=== PATIENT | female | born 1945 | race Caucasian/White ===

== ENCOUNTER → 2016-09-23 | Outpatient (CLI) | payer MEDICARE ==
[~2016-09-23] MED LIST: ASP81TEC PO; CALC-80 PO; ESTR1PAT28 TOP; HYDR-34 PO; LOVA10TA PO; LVT.15T PO; MAGN400T6 PO; MTF500T PO; MULT-608 PO; NAPR220C PO; NATTOKINASE PO; NIAC250T17 PO; OLME20TA21 PO; OSTEO BI FLEX PO; PANT40TA2 PO; SITA100T PO; TOPI50TA2 PO; UBID200C PO; VENL150C53 PO
--- NOTE | 2016-09-27 09:18 | Diagnostic Imaging Report ---
Bilateral screening mammogram The current study was also evaluated with a Computer Aided Detection (CAD) system. Indication: Screening. No current complaints stated on the questionnaire. COMPARISON: 09/01/15. FINDINGS: The breasts are composed of scattered fibroglandular densities. There are scattered benign-appearing calcifications seen. Allowing for technique and positional differences, no suspicious change is seen. IMPRESSION: No significant change. ACR BI-RADS Category 2: Benign findings. Result letter will be mailed to the patient. Note: At least 10% of breast cancer is not imaged by mammography. Dictated by: Dictated on workstation # [id number]
== END ==
LOC: RAD 10:06
PROVIDERS: ATTEND Obstetrics & Gynecology
DX: Z12.31 Encounter for screening mammogram for malignant neoplasm of breast (principal)
CPT/HCPCS: 77067

== ENCOUNTER → 2017-01-27 | Outpatient (CLI) | payer MEDICARE ==
--- NOTE | 2017-01-27 20:14 | Diagnostic Imaging Report ---
EXAMINATION: DEXA scan. INDICATION: Screening for osteoporosis. There are no prior studies available for comparison. The bone mineral density of the hips and spine was measured. FINDINGS: The T-score for the spine is 4.0. The T-score for the left hip is 0.2 and for the right hip 0.1. All of these values are within normal limits. IMPRESSION: The bone mineral density of the hips and spine is within normal limits. Dictated by: Dictated on workstation # [id number]
== END ==
LOC: RAD 08:25
PROVIDERS: ATTEND Internal Medicine
DX: R29.890 Loss of height (principal); Z78.0 Asymptomatic menopausal state
CPT/HCPCS: 77080

== ENCOUNTER → 2019-02-26 | Outpatient (CLI) | payer MEDICARE ==
[~2019-02-26] MED LIST changes: +ASPI-999 PO; +ATOR80TA76 PO; +CARV3.122 PO; +CLOP75TA28 PO; +SACU1TAB PO
== END ==
LOC: CARD 08:40
PROVIDERS: ATTEND Nurse Practitioner Family
DX: I34.0 Nonrheumatic mitral (valve) insufficiency (principal); I25.10 Atherosclerotic heart disease of native coronary artery without angina pectoris; I25.5 Ischemic cardiomyopathy; I10 Essential (primary) hypertension; E78.5 Hyperlipidemia, unspecified
CPT/HCPCS: 93306

== ENCOUNTER 2019-05-23 09:53 | Outpatient (RCR) | payer MEDICARE | END 2019-05-24 | disposition home or self-care (01) | LOC: CR 09:53 | PROVIDERS: ATTEND Internal Medicine Cardiovascular Disease | DX: Z48.812 Encounter for surgical aftercare following surgery on the circulatory system (principal); I25.2 Old myocardial infarction; Z95.5 Presence of coronary angioplasty implant and graft | CPT/HCPCS: 93798 ==

== ENCOUNTER 2019-06-01 10:26 | Outpatient (RCR) | payer MEDICARE ==
[~2019-06-01 10:26] MED LIST changes: -SACU1TAB PO; +SACU1TAB2 PO
== END 2019-08-23 | disposition home or self-care (01) ==
LOC: CR 10:26
PROVIDERS: ATTEND Internal Medicine Cardiovascular Disease
DX: Z48.812 Encounter for surgical aftercare following surgery on the circulatory system (principal); I25.2 Old myocardial infarction; Z95.5 Presence of coronary angioplasty implant and graft
CPT/HCPCS: 93798

== ENCOUNTER → 2019-07-30 | Outpatient (CLI) | payer MEDICARE | LOC: CARD 12:46 | PROVIDERS: ATTEND Nurse Practitioner Family | DX: I25.5 Ischemic cardiomyopathy (principal); I25.10 Atherosclerotic heart disease of native coronary artery without angina pectoris; I11.9 Hypertensive heart disease without heart failure; E78.2 Mixed hyperlipidemia; I51.89 Other ill-defined heart diseases; I34.0 Nonrheumatic mitral (valve) insufficiency | CPT/HCPCS: 93306 ==

== ENCOUNTER → 2019-12-25 | Outpatient (CLI) | payer MEDICARE ==
[~2019-12-25] VITALS: Ht 170 cm; Wt 83.0 kg
[~2019-12-25] MED LIST changes: +CATHETER FLUSH 10 ML SYR IV PRN; +REGADENOSON 0.4 MG/5 ML SYR (LEXISCAN) IV ONE
[2019-12-25 09:26] VITALS: BP 157/86
[2019-12-25 09:27] VITALS: BP 151/88
--- NOTE | 2019-12-25 16:11 | STRESS TEST ---
DATE OF SERVICE: 12/25/2019 RESTING AND POST REGADENOSON TECHNETIUM-99M TETROFOSMIN SPECT CT IMAGING ORDERING PHYSICIAN: Allison Penn APRN. PRIMARY PHYSICIAN: Dr. Butler. CLINICAL DIAGNOSIS: Coronary artery disease. Baseline images were carried out after injection of 10.27 mCi of technetium-99m Tetrofosmin. This was followed by 0.4 mg Regadenoson and 31.3 mCi of technetium-99m Tetrofosmin for stress imaging. The electrocardiogram showed sinus rhythm with evidence of anterior wall myocardial infarction. The electrocardiogram did not change significantly with Regadenoson infusion. The patient tolerated the procedure well. Review of images at rest and following stress indicates a predominantly fixed anteroapical perfusion defect. Gated images show anteroapical akinesis to dyskinesis. Left ventricular ejection fraction is calculated to be 37%. Left ventricular end diastolic volume is 131 mL. TID is absent (1.18). CONCLUSIONS: 1. Anteroapical myocardial infarction with a small amount of jeromy-infarct ischemia. 2. Anteroapical akinesis to dyskinesis. 3. Impairment of global left ventricular systolic function with an ejection fraction of 37%. 4. Cardiomegaly. Job ID: [id number] DocumentID: [id number] Dictated Date: 12/25/2019 15:48:05 Mechanics Supervisor Date: 12/25/2019 16:11:18 Dictated By: ERWIN TOLBERT MD, MA, FACP, FACC,
== END ==
LOC: CARD 08:22
PROVIDERS: ATTEND Nurse Practitioner Family
DX: I25.2 Old myocardial infarction (principal); I11.9 Hypertensive heart disease without heart failure; I25.5 Ischemic cardiomyopathy; I25.10 Atherosclerotic heart disease of native coronary artery without angina pectoris; I65.23 Occlusion and stenosis of bilateral carotid arteries; E78.5 Hyperlipidemia, unspecified
CPT/HCPCS: 78452; 93017; A9502

== ENCOUNTER 2020-01-29 06:35 | Day surgery (SDC) | payer MEDICARE ==
[2020-01-29] VITALS (11 sets, daily range): BP systolic 128–167; BP diastolic 62–78
[~2020-01-29] VITALS: Ht 168 cm; Wt 82.0 kg
[~2020-01-29 06:35] MED LIST changes: -CATHETER FLUSH 10 ML SYR IV PRN; -REGADENOSON 0.4 MG/5 ML SYR (LEXISCAN) IV ONE
[2020-01-29] MEDS ORDERED: HEParin (CATH LAB) 2,000 ML IV ONE (06:55)
[2020-01-29] MEDS ORDERED: NS IV 1000 ML 1,000 ML ONE (06:55)
[2020-01-29] MEDS ORDERED: LIDOCAINE 1% INJ 20 ML 20 ML VIAL ONE (06:56)
[2020-01-29] MEDS ORDERED: NS IV 1000 ML 1,000 ML IV SCH ×2 (07:00→10:53)
[2020-01-29 07:22] LABS: HEMOGLOBIN 12.9 G/DL (11.5-16.0); MEAN PLATELET VOLUME 10.3 FL (7.4-10.4); RED CELL DISTRIBUTION WIDTH 13.5 % (10.0-14.5)
[2020-01-29] MEDS ORDERED: AMIT10TA6 PO (07:23)
[2020-01-29] MEDS ORDERED: TOPI100T11 PO (07:23)
[2020-01-29] MEDS ORDERED: METF-399 PO (07:23)
[2020-01-29] MEDS ORDERED: ASPI-983 PO (07:23)
[2020-01-29] MEDS ORDERED: FAMO20TA3 PO (07:23)
[2020-01-29] MEDS ORDERED: CLOP75TA69 PO (07:23)
[2020-01-29] MEDS ORDERED: LEVO112T55 PO (07:23)
[2020-01-29] MEDS ORDERED: BUPR150T7 PO (07:23)
[2020-01-29] MEDS ORDERED: LOSA50TA63 PO (07:23)
[2020-01-29 07:33] LABS: INR 0.9 (0.8-1.4); PROTHROMBIN TIME PATIENT 12.3 SEC (12.2-14.7)
[2020-01-29 07:42] LABS: ALBUMIN 3.9 GM/DL (3.2-4.5); BILIRUBIN,TOTAL 0.2 MG/DL (0.1-1.0); CALCIUM 8.9 MG/DL (8.5-10.1); CREATININE SERUM 1.17 MG/DL (0.60-1.30); POTASSIUM 3.7 MMOL/L (3.6-5.0); TOTAL PROTEIN 6.6 GM/DL (6.4-8.2)
[2020-01-29] MEDS ORDERED: MIDAZOLAM 5 MG/5 ML (VERSED) VIAL ONE (08:30)
[2020-01-29] MEDS ORDERED: fentaNYL INJECTION 100 MCG/2 ML AMP ONE (08:31)
--- NOTE | 2020-01-29 10:52 | Cardiac Procedure Note-CS/ASA ---
Pre-Procedure Note Pre-Op Procedure Note H&P Reviewed The H&P was reviewed, patient examined and no changes noted. Date H&P Reviewed: Jan 29, 2020 Time H&P Reviewed: 08:50 Conscious Sedation Pre-Proced Time 08:50 ASA Score 3 For ASA 3 and 4: Consider anesthesia and medical clearance. Also, for patients with a history of failed moderate sedation consider anesthesia. Airway Lungs Heart ASA score ASA 1: a normal healthy patient ASA 2: a patient with a mild systemic disease (mid diabetes, controlled hypertension, obesity ASA 3: a patient with a severe systemic disease that limits activity (angina, COPD, prior Myocardial infarction) ASA 4: a patient with an incapacitating disease that is a constant threat to life (CHF, renal failure) ASA 5: a moribund patient not expected to survive 24 hrs. (ruptured aneurysm) ASA 6: a declared brain- patient whose organs are being harvested. For emergent operations, add the letter E after the classification Mallampati Classification Grade 2 Sedation Plan Analgesia, Amnesia, Plan communicated to team members, Discussed options with patient/fam, Discussed risks with patient/fam The patient is an appropriate candidate to undergo the planned procedure, sedation, and anesthesia. The patient immediately re-assessed prior to indication. ERWIN TOLBERT MD FACP FAC CCDS Jan 29, 2020 10:52
--- NOTE | 2020-01-29 10:56 | Discharge Inst-Cardiology ---
Discharge Inst-Cardiac Discharge Medications Continued Medications: Amitriptyline HCl (Amitriptyline HCl) 10 Mg Tablet 10 MG PO HS, TAB Aspirin (Aspirin EC) 81 Mg Tablet.dr 81 MG PO DAILY, TAB Bupropion HCl (Bupropion Xl) 150 Mg Tab.er.24h 150 MG PO BID for Smoking Cessation, TAB Calcium Carbonate/Vitamin D3 (Calcium 600 + D Caplet) 1 Each Tablet 1 EACH PO DAILY Carvedilol (Carvedilol) 3.125 Mg Tablet 3.125 MG PO BID, #60 TAB 5 Refills Clopidogrel Bisulfate (Plavix) 75 Mg Tablet 75 MG PO DAILY, TAB Famotidine (Acid Map Compiler (FAMOTIDINE)) 20 Mg Tablet 20 MG PO BID, TAB Levothyroxine Sodium (Levothyroxine Sodium) 112 Mcg Tablet 112 MCG PO DAILY, TAB Losartan Potassium (Losartan Potassium) 50 Mg Tablet 50 MG PO DAILY, TAB Magnesium Oxide (Magnesium Oxide) 400 Mg Tablet 400 MG PO DAILY Multivitamins (Multiple Vitamin) 1 Tab Tablet 1 TAB PO DAILY [Nattokinase] () 100 MG PO DAILY [Osteo Bi Flex] () 1 TAB PO BID Topiramate (Topiramate) 100 Mg Tablet 100 MG PO DAILY, TAB Ubidecarenone (Co Q-10) 200 Mg Capsule 200 MG PO DAILY Discontinued Medications: Metformin HCl (Metformin HCl) 1,000 Mg Tablet 500 MG PO BID, TAB Patient Instructions Patient Instructions: Hold METFROMIN until the evening of 01/31/20 and then resume previous home dose ERWIN TOLBERT MD FACP [facility] Jan 29, 2020 10:56
--- NOTE | 2020-01-29 10:57 | Discharge Inst-Post CATH ---
Discharge Inst-CATH/EP Post Cardiac Cath/EP D/C Inst Follow Up/Plan F/u with Dr Sahu in 3 weeks ACTIVITY * Go Home directly and rest. * Limit activity of the leg (or wrist if it was used) for 7 days including aerobics, swimming, jogging, bicycling, etc. * Restrict stair-climbing for 7 days if possible, if not, climb up with your n on-cath leg, then bring together on the same step. * Avoid lifting, pushing, pulling or excessive movement of the affected ex tremity for 7 days. * Customary sexual activity may be resumed after 2 days-use caution not to use a position that strains or causes pain to the affected extremity. * No driving for 24 hours. * NO SMOKING. * Avoid straining for bowel movements for 7 days. * Gentle walking on level ground is allowed. * Returning to work will depend on the type of procedure and the results. Your doctor will discuss this with you. CALL YOUR DOCTOR FOR ANY OF THE FOLLOWING: *If bleeding from the puncture site occurs- Apply gentle pressure to site with clean cloth and call your doctor or EMS. * If a knot or lump forms under the skin, increases in size, or causes pain. * If bruising appears to be worsening or moving further down your leg instead of disappearing. * Temperature above 101 F. CARE OF YOUR GROIN INCISION; * Bruising or purple discoloration of the skin near the puncture site is common. * You may shower only, no bathtub bathing for 5 days. Be careful to avoid slipping as your leg may feel stiff. * If a closure device was used on your femoral artery, please see the attached guide regarding care of the device and your leg. * Leave dressing on FOR 24 hours. CARE OF YOUR WRIST INCISION; * Bruising or purple discoloration of the skin near the puncture site is common. * You may shower. * DO NOT submerge wrist. * Leave dressing on FOR 24 hours. ERWIN SAHU MD FACP FAC CCDS Jan 29, 2020 10:57
[2020-01-29] MEDS ORDERED: PATIENT MAY USE OWN MEDS, ALL PO SCH (11:00)
--- NOTE | 2020-01-29 13:02 | CARDIAC CATHETERIZATION ---
DATE OF SERVICE: 01/29/2020 CARDIAC CATHETERIZATION REPORT The patient is a 74-year-old lady who is known to have coronary artery disease. She has previously had stenting of the left anterior descending and right coronary arteries. She has been experiencing chest discomfort, which is reminiscent of her previous angina, according to her. Given continuing symptoms, cardiac catheterization was carried out today after having obtained an informed consent. DESCRIPTION OF PROCEDURE: She was brought to the cardiac catheterization laboratory in a fasting state. Right groin was prepared and draped in the usual sterile fashion. Lidocaine 1% was used for local anesthesia. Modified Seldinger technique was used to advance a 5-Bolivian sheath in the right femoral artery. A 5-Bolivian JL4 catheter was used for left coronary angiography. A 5-Bolivian JR4 catheter was used for right coronary angiography. A 5-Bolivian pigtail catheter was used for left heart catheterization and left ventricular angiography. Angiography of the right femoral artery was carried out through the sheath. Mynx was used to achieve hemostasis. She tolerated the procedure well. HEMODYNAMICS: Left ventricular end-diastolic pressure following coronary angiography was 11 mmHg. There was no significant pressure gradient on pullback across the aortic valve. Ascending aortic pressure was 109/46 with a mean of 67 mmHg. CORONARY ANGIOGRAPHY: Left main coronary artery does not exhibit obstructive disease. There is coronary calcification involving all coronary vessels, especially of the left anterior descending. The left anterior descending artery has a widely patent stent in its proximal portion that is known to be Alpine Xience 2.25 x 12 that has been postdilated to 2.75 mm. The rest of the left anterior descending artery has diffuse moderate disease. The left circumflex artery has mild disease in its distal portion. The right coronary artery has a widely patent stent in its proximal portion that is known to be Alpine Xience 3.0 x 23 mm and a widely patent distal stent that is known to be Alpine Xience 2.75 x 8 mm. Distal to the distal stent, there is step down in a lesion in the distal right coronary artery that is approximately 50%. The right coronary artery is dominant. LEFT VENTRICULAR ANGIOGRAPHY: Left ventricular angiography was carried out in the right anterior oblique projection. The left ventricle shows anteroapical dyskinesis. Left ventricular ejection fraction is approximately 35%. CONCLUSIONS: 1. Coronary artery disease as described above. There are widely patent stents in the proximal left anterior descending (Alpine Xience 2.25 x 12 mm, post-dilated to 2.75 mm, placed in 01/2019) and in the proximal right coronary (Alpine Xience 3.0 x 23 mm, placed in 01/2019) and in the distal right coronary (Alpine Xience 2.75 x 8 mm, placed in 01/2018). The mid and distal left anterior descending artery have diffuse moderate disease. The distal right coronary artery has approximately 50% stenosis. 2. Ischemic cardiomyopathy with anteroapical dyskinesis and left ventricular ejection fraction approximately 35%. 3. Normal left ventricular end-diastolic pressure. DISCUSSION AND RECOMMENDATIONS: Based on the results of the study, it does not appear that further coronary intervention is needed. Medical management is being continued. Outpatient followup is advised. Job ID: [id number] DocumentID: [id number] Dictated Date: 01/29/2020 09:29:22 Clinical Nurse Leader Date: 01/29/2020 13:01:16 Dictated By: ERWIN TOLBERT MD, MA, FACP, FACC, MTDD
== END 2020-01-29 13:08 | disposition home or self-care (01) ==
LOC: CATH 06:35 → SDC 09:42 → CATH 13:08
PROVIDERS: ATTEND Internal Medicine Cardiovascular Disease
DX: I25.10 Atherosclerotic heart disease of native coronary artery without angina pectoris (principal); I42.9 Cardiomyopathy, unspecified; Z88.2 Allergy status to sulfonamides; Z88.8 Allergy status to other drugs, medicaments and biological substances; I10 Essential (primary) hypertension; R73.03 Prediabetes; E78.5 Hyperlipidemia, unspecified; I65.29 Occlusion and stenosis of unspecified carotid artery; I25.2 Old myocardial infarction; Z79.890 Hormone replacement therapy; Z79.84 Long term (current) use of oral hypoglycemic drugs; Z79.899 Other long term (current) drug therapy; Z87.891 Personal history of nicotine dependence
CPT/HCPCS: 80053; 80061; 85027; 85610; 85730; 87081; 93458; C1760; C1894; 36415

== ENCOUNTER → 2020-02-29 | Outpatient (CLI) | payer MEDICARE ==
[~2020-02-29] MED LIST changes: +AMIT10TA6 PO; +ASPI-1238 PO; +BUPR150T7 PO; +CLOP75TA69 PO; +FAMO20TA3 PO; +LEVO112T55 PO; +LOSA50TA63 PO; +METF-399 PO; +TOPI100T11 PO
--- NOTE | 2020-03-03 18:58 | Diagnostic Imaging Report ---
EXAM: Digital mammogram, bilateral screening. Comparisons: 09/26/2017, 09/23/2016 and 09/01/2015 3d digital tomography Bilateral History: Routine screening There are no current complaints. Technique: Bilateral 3D digital tomographic views were obtained with [employer] and reviewed on a [employer] workstation. In addition, CAD - computer aided detection was utilized. Findings: Breast Tissue Density C : The breast tissue is heterogeneously dense. Scattered fibroglandular elements may obscure underlying pathology. There are no suspicious masses, microcalcifications or areas of architectural distortion. Impression: No suspicious findings. BI-RADS Category 1: Negative. Normal interval followup. The patient will receive a letter with the results in the mail. Your mammogram demonstrates that you have dense breast tissue, which could hide abnormalities, and if you have other risk factors for breast cancer that have been identified, you might benefit from supplemental screening tests that may be suggested by your ordering physician. Dense breast tissue, in and of itself, is a relatively common condition. This information is not provided to cause undue concern, but rather to raise your awareness and to promote discussion with your physician regarding the presence of other risk factors, in addition to dense breast tissue. A report of your mammography results will be sent to you and your physician. You should contact your physician if you have any questions or concerns regarding this report. A mammogram does not have 100% sensitivity and therefore a negative imaging study should not delay further work up of a suspicious abnormality. Patient information is entered into the [facility] reminder system using [employer] with a target due date for the next screening mammogram. The patient will receive a reminder. "Our facility is accredited by the [employer] Mammography Program." . ACR category 1. ACR BI-RADS Category 1: Negative. Result letter will be mailed to the patient. Note: At least 10% of breast cancer is not imaged by mammography. Dictated on workstation # [id number]
== END ==
LOC: RAD 14:45
PROVIDERS: ATTEND Internal Medicine
DX: Z12.31 Encounter for screening mammogram for malignant neoplasm of breast (principal)
CPT/HCPCS: 77063; 77067

== ENCOUNTER → 2020-05-12 | Outpatient (CLI) | payer MEDICARE | LOC: CARD 13:46 | PROVIDERS: ATTEND Internal Medicine Cardiovascular Disease | DX: I25.5 Ischemic cardiomyopathy (principal); I51.7 Cardiomegaly | CPT/HCPCS: 93306 ==

== ENCOUNTER → 2021-03-02 | Outpatient (CLI) | payer MEDICARE ==
[~2021-03-02] MED LIST changes: -AMIT10TA6 PO; +AMT10T PO; +BUPR150T24 PO; -BUPR150T7 PO
--- NOTE | 2021-03-02 16:52 | Diagnostic Imaging Report ---
INDICATION: Routine screening. COMPARISON: 02/29/2020 and 09/26/2017. TECHNIQUE: 2D and 3D bilateral screening mammography was performed with CAD. FINDINGS: Scattered fibroglandular densities are identified bilaterally. Nodular densities in the outer right breast appear stable. No spiculated mass or malignant-appearing microcalcifications are seen. The axillae are unremarkable. IMPRESSION: No mammographic features suspicious for malignancy are identified. ACR BI-RADS Category 2: Benign findings. Result letter will be mailed to the patient. Note: At least 10% of breast cancer is not imaged by mammography. Dictated by: Dictated on workstation # [id number]
== END ==
LOC: RAD 15:00
PROVIDERS: ATTEND Obstetrics & Gynecology
DX: Z12.31 Encounter for screening mammogram for malignant neoplasm of breast (principal)
CPT/HCPCS: 77063; 77067

== ENCOUNTER 2021-06-03 17:31 | Emergency (ER) | payer MEDICARE ==
[~2021-06-03] VITALS: Ht 167 cm; Wt 81.0 kg
--- NOTE | 2021-06-03 17:50 | ED Lower Extremity ---
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 Allergies and Home Medications Allergies Coded Allergies: Sulfa (Sulfonamide Antibiotics) (Verified Allergy, Unknown, 01/29/20) lisinopril (Verified Allergy, Unknown, 01/29/20) Patient Home Medication List Amitriptyline HCl (Amitriptyline HCl) 10 Mg Tablet, 10 MG PO HS, (Reported) Entered as Reported by: SUSANA DAVISON on 01/29/20722 Aspirin (Aspirin EC) 81 Mg Tablet.dr, 81 MG PO DAILY, (Reported) Entered as Reported by: SUSANA DAVISON on 01/29/20722 Bupropion HCl (Bupropion Xl) 150 Mg Tab.er.24h, 150 MG PO BID, (Reported) Entered as Reported by: SUSANA DAVISON on 01/29/20722 Calcium Carbonate/Vitamin D3 (Calcium 600 + D Caplet) 1 Each Tablet, 1 EACH PO DAILY, (Reported) Entered as Reported by: JUAN SMALLS on 06/03/11922 Carvedilol (Carvedilol) 3.125 Mg Tablet, 3.125 MG PO BID Prescribed by: TITI MADDEN on 01/31/19826 Clopidogrel Bisulfate (Plavix) 75 Mg Tablet, 75 MG PO DAILY, (Reported) Entered as Reported by: SUSANA DAVISON on 01/29/20722 Famotidine (Acid Ict Help Desk Technician (FAMOTIDINE)) 20 Mg Tablet, 20 MG PO BID, (Reported) Entered as Reported by: SUSANA DAVISON on 01/29/20722 Levothyroxine Sodium (Levothyroxine Sodium) 112 Mcg Tablet, 112 MCG PO DAILY, (Reported) Entered as Reported by: SUSANA DAVISON on 01/29/20722 Losartan Potassium (Losartan Potassium) 50 Mg Tablet, 50 MG PO DAILY, (Reported) Entered as Reported by: SUSANA DAVISON on 01/29/20722 Magnesium Oxide (Magnesium Oxide) 400 Mg Tablet, 400 MG PO DAILY, (Reported) Entered as Reported by: JUAN SMALLS on 06/03/11 09 Multivitamins (Multiple Vitamin) 1 Tab Tablet, 1 TAB PO DAILY, (Reported) Entered as Reported by: JUAN SMALLS on 06/03/11922 Topiramate (Topiramate) 100 Mg Tablet, 100 MG PO DAILY, (Reported) Entered as Reported by: SUSANA DAVISON on 01/29/20722 Ubidecarenone (Co Q-10) 200 Mg Capsule, 200 MG PO DAILY, (Reported) Entered as Reported by: JUAN SMALLS on 06/03/11922 [Nattokinase] , 100 MG PO DAILY, (Reported) Entered as Reported by: JUAN SMALLS on 06/03/11922 [Osteo Bi Flex] , 1 TAB PO BID, (Reported) Entered as Reported by: JUAN SMALLS on 06/03/11922 Past Vvqyndt-Sjkgdh-Afcbiv Hx Patient Social History Tobacco Use?: No Substance use?: No Alcohol Use?: Yes Alcohol Frequency: Once in a while Pt feels they are or have been: No Immunizations Up To Date Tetanus Booster (TDap): Less than 5yrs First/Initial COVID19 Vaccinat: yes Second COVID19 Vaccination Nino: yes COVID19 Vaccine Traffic Sergeant: cyndi Past Medical History Surgery/Hospitalization HX: sx: cardiac stents, gallbladder, tonsils, tubal Surgeries: Yes Cardiac, Gallbladder, Tonsillectomy, Tubal Ligation Respiratory: No Cardiac: Yes Hypertension Neurological: No Reproductive Disorders: No Sexually Transmitted Disease: No Gastrointestinal: No Musculoskeletal: Yes (ARTHRITIS/INJECTIONS IN HER RIGHT KNEE AND NECK ) Endocrine: Yes Hypothyroidsim, Diabetes, Non-Insulin dep Blood Disorders: No Physical Exam Vital Signs Vital Signs - First Documented 06/03/21 17:38 Pulse 65 Resp 18 B/P (MAP) 183/84 (117) Pulse Ox 96 Capillary Refill : Less Than 3 Seconds Height, Weight, BMI Height: 5'6.00" Weight: 179lbs. 1.6oz. 81.544584xo; 29.00 BMI Method:Stated Progress/Results/Core Measures Results/Orders Vital Signs/I&O 06/03/21 17:38 Pulse 65 Resp 18 B/P (MAP) 183/84 (117) Pulse Ox 96 Blood Pressure Mean: 117 Departure Departure-Patient Inst. Referrals: ERINN GANT DO (PCP/Family) Primary Care Physician [place] PATEL STUDENT Jun 03, 2021 17:50
--- NOTE | 2021-06-03 17:56 | ED Lower Extremity ---
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 Source: patient History of Present Illness Date Seen by Provider: Jun 03, 2021 Time Seen by Provider: 17:47 Initial Comments PT ARRIVES VIA POV FROM HOME STATES 30 MINUTES AGO, SHE WAS WALKING UP STEPS ONTO WO[place]EN PORCH AND FELL FORWARD, HITTING HER LEFT [place] ON THE WOODEN PORCH OR PORCH STEP HAS A LARGE LACERATION TO LEFT LOWER LEG NO OTHER INJURIES FROM THE INCIDENT--DID NOT HIT HEAD NO PARESTHESIAS OR MOTOR DEFICITS, PT IS ABLE TO BEAR WEIGHT ON LEG PT IS ON ASPIRIN AND PLAVIX WITH HX OF CAD WITH STENTS X 3 PT IS DIABETIC. LAST TETANUS VACCINE IS UNKNOWN PCP: DR. 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 TOLBERT Allergies and Home Medications Allergies Coded Allergies: Sulfa (Sulfonamide Antibiotics) (Verified Allergy, Unknown, 01/29/20) lisinopril (Verified Allergy, Unknown, 01/29/20) Patient Home Medication List Home Medication List Reviewed: Yes Amitriptyline HCl (Amitriptyline HCl) 10 Mg Tablet, 10 MG PO HS, (Reported) Entered as Reported by: SUSANA DAVISON on 01/29/20 07 Aspirin (Aspirin EC) 81 Mg Tablet.dr, 81 MG PO DAILY, (Reported) Entered as Reported by: SUSANA DAVISON on 01/29/20722 Bupropion HCl (Bupropion Xl) 150 Mg Tab.er.24h, 150 MG PO BID, (Reported) Entered as Reported by: SUSANA DAVISON on 01/29/20 07 Calcium Carbonate/Vitamin D3 (Calcium 600 + D Caplet) 1 Each Tablet, 1 EACH PO DAILY, (Reported) Entered as Reported by: JUAN SMALLS on 06/03/11 0923 Carvedilol (Carvedilol) 3.125 Mg Tablet, 3.125 MG PO BID Prescribed by: TITI MADDEN on 01/31/19 0827 Cephalexin (Cephalexin) 500 Mg Tablet, 500 MG PO QID Prescribed by: BARBIE TOLENTINO on 06/03/211950 Clopidogrel Bisulfate (Plavix) 75 Mg Tablet, 75 MG PO DAILY, (Reported) Entered as Reported by: SUSANA DAVISON on 01/29/20722 Famotidine (Acid Market Research Coordinator (FAMOTIDINE)) 20 Mg Tablet, 20 MG PO BID, (Reported) Entered as Reported by: SUSANA DAVISON on 01/29/20722 Levothyroxine Sodium (Levothyroxine Sodium) 112 Mcg Tablet, 112 MCG PO DAILY, (Reported) Entered as Reported by: SUSANA DAVISON on 01/29/20722 Losartan Potassium (Losartan Potassium) 50 Mg Tablet, 50 MG PO DAILY, (Reported) Entered as Reported by: SUSANA DAVISON on 01/29/20722 Magnesium Oxide (Magnesium Oxide) 400 Mg Tablet, 400 MG PO DAILY, (Reported) Entered as Reported by: JUAN SMALLS on 06/03/11922 Multivitamins (Multiple Vitamin) 1 Tab Tablet, 1 TAB PO DAILY, (Reported) Entered as Reported by: JUAN SMALLS on 06/03/11922 Topiramate (Topiramate) 100 Mg Tablet, 100 MG PO DAILY, (Reported) Entered as Reported by: SUSANA DAVISON on 01/29/20722 Tramadol HCl (Ultram) 50 Mg Tablet, 50 MG PO Q4H Prescribed by: BARBIE TOLENTINO on 06/03/211951 Ubidecarenone (Co Q-10) 200 Mg Capsule, 200 MG PO DAILY, (Reported) Entered as Reported by: JUAN SMALLS on 06/03/11922 [Nattokinase] , 100 MG PO DAILY, (Reported) Entered as Reported by: JUAN SMALLS on 06/03/11922 [Osteo Bi Flex] , 1 TAB PO BID, (Reported) Entered as Reported by: JUAN SMALLS on 06/03/11922 Review of Systems Constitutional: no symptoms reported Musculoskeletal: see HPI Skin: see HPI Psychiatric/Neurological: No Symptoms Reported Past Zwkapcf-Mjtsul-Labghk Hx Patient Social History Tobacco Use?: No Substance use?: No Alcohol Use?: Yes Alcohol Frequency: Once in a while Pt feels they are or have been: No Immunizations Up To Date Tetanus Booster (TDap): Less than 5yrs First/Initial COVID19 Vaccinat: yes Second COVID19 Vaccination Nino: yes 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[employer] Products: cyndi Past Medical History Surgery/Hospitalization HX: sx: cardiac stents, gallbladder, tonsils, tubal Surgeries: Yes Cardiac, Gallbladder, Tonsillectomy, Tubal Ligation Respiratory: No Cardiac: Yes Coronary Artery Disease, High Cholesterol, Hypertension Neurological: No Reproductive Disorders: No 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 1.6oz. 81.844179mt; 29.00 BMI Method:Stated General Appearance: WD/WN, no apparent distress Neck: non-tender Back: normal inspection Hips: bilateral hip normal inspection Legs: right leg normal inspection; left leg other (LARGE V-SHAPED FLAP LACERATION TO ANTERIOR ASPECT OF LEFT LOWER LEG. ) Procedures/Interventions Other Wound Location LEFT LOWER LEG/ANTERIOR ASPECT Wound Length (cm): 25 Wound's Depth, Shape: into muscle, irregular, flap, bone, sub Q Wound Explored: clean Anesthesia: Lidocaine w/ Epi (2%) Volume Anesthetic (ccs): 2000 Wound Debrided: extensive Progress USING STERILE TECHNIQUE, WOUND WAS INJECTED WITH 2% LIDOCAINE + EPI IRRIGATED WITH 2000 ML OF STERILE SALINE + BETASEPT WOUND EXPLORED, AND WAS NOTED THAT WOUND EXTENDED COMPLETELY THRU FASCIA, MUSCLE AND LARGE AMOUNT OF TIBIA BONE IS EXPOSED--AT LEAST 10 CM OF BONE IS EXPOSED. AT THAT POINT, WOUND WAS COVERED WITH STERILE GAUZE AND SURGEON WAS CONTACTED. Progress/Results/Core Measures Results/Orders Lab Results Laboratory Tests Test 06/03/21 19:03 Range/Units White Blood Count 9.6 4.3-11.0 10^3/uL Red Blood Count 4.04 3.80-5.11 10^6/uL Hemoglobin 12.4 11.5-16.0 g/dL Hematocrit 41 35-52 % Mean Corpuscular Volume 102 H 80-99 fL Mean Corpuscular Hemoglobin 31 25-34 pg Mean Corpuscular Hemoglobin Concent 30 L 32-36 g/dL Red Cell Distribution Width 12.8 10.0-14.5 % Platelet Count 183 130-400 10^3/uL Mean Platelet Volume 10.4 9.0-12.2 fL Immature Granulocyte % (Auto) 0 % Neutrophils (%) (Auto) 67 42-75 % Lymphocytes (%) (Auto) 21 12-44 % Monocytes (%) (Auto) 7 0-12 % Eosinophils (%) (Auto) 5 0-10 % Basophils (%) (Auto) 1 0-10 % Neutrophils # (Auto) 6.4 1.8-7.8 10^3/uL Lymphocytes # (Auto) 2.0 1.0-4.0 10^3/uL Monocytes # (Auto) 0.7 0.0-1.0 10^3/uL Eosinophils # (Auto) 0.4 H 0.0-0.3 10^3/uL Basophils # (Auto) 0.1 0.0-0.1 10^3/uL Immature Granulocyte # (Auto) 0.0 0.0-0.1 10^3/uL Prothrombin Time 13.9 12.2-14.7 SEC INR Comment 1.0 0.8-1.4 Activated Partial Thromboplast Time 28 24-35 SEC Sodium Level 140 135-145 MMOL/L Potassium Level 3.8 3.6-5.0 MMOL/L Chloride Level 111 H 98-107 MMOL/L Carbon Dioxide Level 22 21-32 MMOL/L Anion Gap 7 5-14 MMOL/L Blood Urea Nitrogen 17 7-18 MG/DL Creatinine 1.03 0.60-1.30 MG/DL Estimat Glomerular Filtration Rate 52 BUN/Creatinine Ratio 17 Glucose Level 99 70-105 MG/DL Calcium Level 8.5 8.5-10.1 MG/DL My Orders Orders - RAJAN,BARBIE K DO Tibia/Fibula, Left, 2 Views (06/03/21 17:51) Dipht,Pertuss(Acell),Tet Adult (Boostrix (06/03/21 18:00) Lidocaine/Epi 2% 1:100,000 (Xylocaine/Ep (06/03/21 18:00) Lidocaine/Epi 2% 1:100,000 (Xylocaine/Ep (06/03/21 18:26) Ed Iv/Invasive Line Start (06/03/21 18:45) Basic Metabolic Panel (06/03/21 18:45) Cbc With Automated Diff (06/03/21 18:45) Protime With Inr (06/03/21 18:45) Partial Thromboplastin Time (06/03/21 18:45) Cefazolin 2 Gm Iv Premixed (Ancef 2 Gm P (06/03/21 18:45) Cefazolin Injection (Ancef Injection) (06/03/21 19:35) Rx-Tramadol Hcl (Rx-Ultram) (06/03/21 19:52) Rx-Cephalexin Capsule (Rx-Keflex Capsule (06/03/21 19:52) Medications Given in ED Current Medications Medications Dose Ordered Sig/Michele Route Start Time Stop Time Status Last Admin Dose Admin Diphtheria/ Tetanus/Acell Pertussis 0.5 ml ONCE ONCE IM 06/03/21 18:00 06/03/21 18:01 DC 06/03/21 18:23 0.5 ML Lidocaine/ Epinephrine 20 ml ONCE ONCE INJ 06/03/21 18:00 06/03/21 18:01 DC 06/03/21 19:00 20 ML Vital Signs/I&O 06/03/21 06/03/21 17:38 20:26 Pulse 65 60 Resp 18 20 B/P (MAP) 183/84 (117) 178/71 Pulse Ox 96 97 Blood Pressure Mean: 117 Diagnostic Imaging Comments XRAYS LEFT TIB-FIB--PER RADIOLOGIST REPORT AT 1855 FINDINGS: No fracture or malalignment. Moderate degenerative changes in the left knee. No suspicious osteoblastic or lytic lesions. Plantar and Achilles calcaneal heel spurs. No radiopaque foreign bodies. IMPRESSION: No acute radiographic findings in the left tibia or fibula. Reviewed: Reviewed by Me Departure Communication (Admissions) 1843--SPOKE WITH DR. TROTTER, SURGEON. HE WILL BE IN TO SEE PT 1854--DR. TROTTER HERE, CARE TURNED OVER TO HIM Impression Primary Impression: COMPLEX LACERATION OF LEFT LOWER LEG Additional Impressions: Ypwjkfgtiy-furwazoyk-otcuxlk (DPT) vaccination administered at current visit NIDDM ASVD (arteriosclerotic vascular disease) Disposition: HOME, SELF-CARE Condition: Stable Departure-Patient Inst. Decision time for Depature: 19:45 Referrals: JULI TROTTER WILLIAM J DO (PCP/Family) Primary Care Physician Patient Instructions: Laceration Repair With Stitches (DC), Diphtheria and Tetanus Toxoids, and Acellular Pertussis Vaccine Add. Discharge Instructions: LEAVE DRESSING IN PLACE FOR 24 HOURS, THEN CLEAN TWICE A DAY WITH ANTIBACTERIAL SOAP AND WATER ON A Q-TIP, AND APPLY FRESH DRESSING OTHERWISE KEEP CLEAN AND DRY ICE TO AREA AT 20 MINUTE INTERVALS ACTIVITIES TOLERATED, ELEVATE LEG MUCH POSSIBLE WHEN RESTING TYLENOL NEEDED FOR PAIN FOLLOW UP WITH DR. TROTTER IN 1 WEEK FOR FURTHER CARE--CALL IN THE MORNING TO SCHEDULE APPOINTMENT All discharge instructions reviewed with patient and/or family. Voiced understanding. Scripts Tramadol HCl (Ultram) 50 Mg Tablet 50 MG PO Q4H for Pain, #20 TAB Prov: BARBIE TOLENTINO DO 06/03/21 Cephalexin (Cephalexin) 500 Mg Tablet 500 MG PO QID, #28 TAB 0 Refills Prov: BARBIE TOLENTINO DO 06/03/21 BARBIE TOLENTINO DO Jun 03, 2021 17:56
[2021-06-03] MEDS ORDERED: LIDOCAINE/EPI 2% 1:100,00 (XYLOCAINE) 20 ML VIAL INJ ONE (18:00)
[2021-06-03] MEDS ORDERED: TETANUS,DIPTH,PERTUSS P/F (BOOSTRIX) 0.5 ML VIAL IM ONE (18:00)
--- NOTE | 2021-06-03 18:23 | Diagnostic Imaging Report ---
EXAM: Tibia/fibula, left, 2 views. INDICATION: Left leg pain. COMPARISON: None. FINDINGS: No fracture or malalignment. Moderate degenerative changes in the left knee. No suspicious osteoblastic or lytic lesions. Plantar and Achilles calcaneal heel spurs. No radiopaque foreign bodies. IMPRESSION: No acute radiographic findings in the left tibia or fibula. Dictated by: Dictated on workstation # [id number]
[2021-06-03] MEDS ORDERED: LIDOCAINE/EPI 2% 1:100,00 (XYLOCAINE) 20 ML VIAL ONE (18:26)
[2021-06-03] MEDS ORDERED: ceFAZolin 2 GM IV Premixed 50 ML IV STA (18:45)
[2021-06-03 19:16] LABS: BASOPHILS # (AUTO) 0.1 10^3/uL (0.0-0.1); BASOPHILS % (AUTO) 1 % (0-10); EOSINOPHILS # (AUTO) 0.4 10^3/uL (0.0-0.3); EOSINOPHILS % (AUTO) 5 % (0-10); HEMATOCRIT 41 % (35-52); HEMOGLOBIN 12.4 g/dL (11.5-16.0); LYMPHOCYTES % (AUTO) 21 % (12-44); MEAN CORPUSCULAR HEMOGLOBIN 31 pg (25-34); MEAN CORPUSCULAR HGB CONC 30 g/dL (32-36); MEAN CORPUSCULAR VOLUME 102 fL (80-99); MEAN PLATELET VOLUME 10.4 fL (9.0-12.2); MONOCYTES # (AUTO) 0.7 10^3/uL (0.0-1.0); MONOCYTES % (AUTO) 7 % (0-12); NEUTROPHILS # (AUTO) 6.4 10^3/uL (1.8-7.8); NEUTROPHILS % (AUTO) 67 % (42-75); PLATELET COUNT 183 10^3/uL (130-400); WHITE BLOOD COUNT 9.6 10^3/uL (4.3-11.0)
[2021-06-03 19:25] LABS: POTASSIUM 3.8 MMOL/L (3.6-5.0)
[2021-06-03 19:26] LABS: CALCIUM 8.5 MG/DL (8.5-10.1)
[2021-06-03 19:27] LABS: PROTHROMBIN TIME PATIENT 13.9 SEC (12.2-14.7)
[2021-06-03 19:30] LABS: CREATININE SERUM 1.03 MG/DL (0.60-1.30)
[2021-06-03] MEDS ORDERED: ceFAZolin INJECTION 1,000 MG in NS (IVPB) 50 ML IV STA (19:35)
[2021-06-03] MEDS ORDERED: TRAM-42 PO (19:51)
[2021-06-03] MEDS ORDERED: CEPH500T PO (19:51)
[2021-06-03] MEDS ORDERED: RX-CEPHALEXIN (KEFLEX) 250 MG CAP PPK#4 PO STA (19:52)
--- NOTE | 2021-06-03 20:21 | Consultation - Surgery ---
History of Present Illness History of Present Illness Patient Consulted On(tahira/time) 06/03/21 20:08 Time Seen by Provider: 19:11 History of Present Illness Surgery asked to assess Laceration on left lower leg. HPI: pt was at home, tripped walking up porch and landed on her leg. States she doesn't even know how she could have done this; didn't really remember hitting her leg. When I saw her she said was not having pain, ED physician had already injected lidocaine. She states it was bleeding pretty bad at home, but has slowed down. Allergies and Home Medications Allergies Coded Allergies: Sulfa (Sulfonamide Antibiotics) (Verified Allergy, Unknown, 01/29/20) lisinopril (Verified Allergy, Unknown, 01/29/20) Patient Home Medication List Home Medication List Reviewed: Yes Amitriptyline HCl (Amitriptyline HCl) 10 Mg Tablet, 10 MG PO HS, (Reported) Entered as Reported by: SUSANA DAVISON on 01/29/20722 Aspirin (Aspirin EC) 81 Mg Tablet.dr, 81 MG PO DAILY, (Reported) Entered as Reported by: SUSANA DAVISON on 01/29/20722 Bupropion HCl (Bupropion Xl) 150 Mg Tab.er.24h, 150 MG PO BID, (Reported) Entered as Reported by: SUSANA DAVISON on 01/29/20722 Calcium Carbonate/Vitamin D3 (Calcium 600 + D Caplet) 1 Each Tablet, 1 EACH PO DAILY, (Reported) Entered as Reported by: JUAN SMALLS on 06/03/11922 Carvedilol (Carvedilol) 3.125 Mg Tablet, 3.125 MG PO BID Prescribed by: TITI MADDEN on 01/31/19826 Cephalexin (Cephalexin) 500 Mg Tablet, 500 MG PO QID Prescribed by: BARBIE TOLENTINO on 06/03/211950 Clopidogrel Bisulfate (Plavix) 75 Mg Tablet, 75 MG PO DAILY, (Reported) Entered as Reported by: SUSANA DAVISON on 01/29/20722 Famotidine (Acid Drafter Engineering (FAMOTIDINE)) 20 Mg Tablet, 20 MG PO BID, (Reported) Entered as Reported by: SUSANA DAVISON on 01/29/20722 Levothyroxine Sodium (Levothyroxine Sodium) 112 Mcg Tablet, 112 MCG PO DAILY, (Reported) Entered as Reported by: SUSANA DAVISON on 01/29/20722 Losartan Potassium (Losartan Potassium) 50 Mg Tablet, 50 MG PO DAILY, (Reported) Entered as Reported by: SUSANA DAVISON on 01/29/20722 Magnesium Oxide (Magnesium Oxide) 400 Mg Tablet, 400 MG PO DAILY, (Reported) Entered as Reported by: JUAN SMALLS on 06/03/11922 Multivitamins (Multiple Vitamin) 1 Tab Tablet, 1 TAB PO DAILY, (Reported) Entered as Reported by: JUAN SMALLS on 06/03/11922 Topiramate (Topiramate) 100 Mg Tablet, 100 MG PO DAILY, (Reported) Entered as Reported by: SUSANA DAVISON on 01/29/20722 Tramadol HCl (Ultram) 50 Mg Tablet, 50 MG PO Q4H Prescribed by: BARBIE TOLENTINO on 06/03/211951 Ubidecarenone (Co Q-10) 200 Mg Capsule, 200 MG PO DAILY, (Reported) Entered as Reported by: JUAN SMALLS on 06/03/11922 [Nattokinase] , 100 MG PO DAILY, (Reported) Entered as Reported by: JUAN SMALLS on 06/03/11922 [Osteo Bi Flex] , 1 TAB PO BID, (Reported) Entered as Reported by: JUAN SMALLS on 06/03/11922 Past Bltwkrh-Ibpxmf-Xvicdu Hx Patient Social History Smoking Status: Never a Smoker Alcohol Use?: Yes Have you traveled recently?: No Immunizations Up To Date Tetanus Booster (TDap): Less than 5yrs Date of Pneumonia Vaccine: Mar 06, 2019 Date of Influenza Vaccine: Mar 06, 2019 Surgeries History of Surgeries: Yes Surgeries: Cardiac, Gallbladder, Tonsillectomy, Tubal Ligation Respiratory History of Respiratory Disorde: No Cardiovascular History of Cardiac Disorders: Yes Cardiac Disorders: Coronary Artery Disease, High Cholesterol, Hypertension Neurological History of Neurological Disord: No Reproductive System Hx Reproductive Disorders: No Sexually Transmitted Disease: No 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 Genitourinary History of Genitourinary Disor: No Gastrointestinal History of Gastrointestinal Di: Yes (S/P CHOLECYSTECTOMY) Gastrointestinal Disorders: Gall Bladder Disease Musculoskeletal History of Musculoskeletal Dis: Yes (ARTHRITIS/INJECTIONS IN HER RIGHT KNEE AND NECK ) Endocrine History of Endocrine Disorders: Yes Endocrine Disorders: Hypothyroidsim, Diabetes, Non-Insulin dep HEENT History of HEENT Disorders: Yes (S/P TONSILLECTOMY) HEENT Disorders: Tonsilitis Cancer History of Cancer: No Psychosocial History of Psychiatric Problem: No Integumentary History of Skin or Integumenta: No Blood Transfusions History of Blood Disorders: No Family Medical History Significant Family History: No Pertinent Family Hx Review of Systems-General Constitutional: No malaise, No weakness EENTM: No hearing loss Respiratory: No cough, No dyspnea on exertion Cardiovascular: No chest pain, No edema; Hx of Intervention Gastrointestinal: No abdominal pain, No nausea, No vomiting Genitourinary: No dysuria, No frequency, No hematuria Physical Exam-General Problems Physical Exam Vital Signs Vital Signs - First Documented 06/03/21 17:38 Pulse 65 Resp 18 B/P (MAP) 183/84 (117) Pulse Ox 96 Capillary Refill : Less Than 3 Seconds General Appearance: WD/WN, no apparent distress Eyes: Bilateral Eye PERRL, Bilateral Eye EOMI HEENT: pharynx normal Respiratory: lungs clear, normal breath sounds, no respiratory distress, no accessory muscle use Cardiovascular: regular rate, rhythm, no murmur Gastrointestinal: non tender, soft Extremities: other (left leg mid-reynolds, appx 10 inches in length; v-shaped. through skin and subQ fat, ms fiber visible) Data Review Labs Laboratory Tests 06/03/21 19:03: White Blood Count 9.6, Red Blood Count 4.04, Hemoglobin 12.4, Hematocrit 41, Mean Corpuscular Volume 102H, Mean Corpuscular Hemoglobin 31, Mean Corpuscular Hemoglobin Concent 30L, Red Cell Distribution Width 12.8, Platelet Count 183, Mean Platelet Volume 10.4, Immature Granulocyte % (Auto) 0, Neutrophils (%) (Auto) 67, Lymphocytes (%) (Auto) 21, Monocytes (%) (Auto) 7, Eosinophils (%) (Auto) 5, Basophils (%) (Auto) 1, Neutrophils # (Auto) 6.4, Lymphocytes # (Auto) 2.0, Monocytes # (Auto) 0.7, Eosinophils # (Auto) 0.4H, Basophils # (Auto) 0.1, Immature Granulocyte # (Auto) 0.0, Prothrombin Time 13.9, INR Comment 1.0, Activated Partial Thromboplast Time 28, Sodium Level 140, Potassium Level 3.8, Chloride Level 111H, Carbon Dioxide Level 22, Anion Gap 7, Blood Urea Nitrogen 17, Creatinine 1.03, Estimat Glomerular Filtration Rate 52, BUN/Creatinine Ratio 17, Glucose Level 99, Calcium Level 8.5 Assessment/Plan Assessment/Plan Assessment/Plan Left leg laceration Plan to suture closed, pt ok with doing it in ER. JULI TROTTER DO Jun 03, 2021 20:21
[2021-06-03 20:26] VITALS: BP 178/71
--- NOTE | 2021-06-04 02:22 | OPERATIVE REPORT ---
DATE OF SERVICE: 06/03/2021 PREOPERATIVE DIAGNOSIS: Left leg laceration. POSTOPERATIVE DIAGNOSIS: Left leg laceration. PROCEDURE: Suture closure of left leg laceration. SURGEON: Ramón Smith DO SPOOLER RUBBER STRAND: None. ANESTHESIA: Local lidocaine. BLOOD LOSS: Less than 5 mL. FLUIDS: None. POSTOPERATIVE CONDITION: Stable. INDICATION FOR PROCEDURE: The patient is a 76-year-old female, who has a laceration on her leg was already washed out, but the ER doctor did not feel comfortable closing it, so needed a close. The patient had eaten, so she did not want to wait 8 hours. She was then amenable to doing it in the ER in her bed. FINDINGS: The patient had a laceration closed that was down through the skin and into the subcutaneous fat, visible muscle fibers, but did not penetrate this muscle fibers of the bone, closed with Prolene suture. PROCEDURE NOTE: After informed consent was obtained, the patient was in her bed. She was sterilely prepped and then draped in normal fashion, closed this with an 8 vertical mattress sutures and then 8 simple interrupted mattress sutures used 3-0 Prolene for the vertical mattress and then five 2-0 Prolene for the vertical mattress and then 8 simple interrupted sutures were to close this, closed in one layer, it was about 4 inches on the medial aspect of the reynolds and about 6 inches on the lateral aspect. I had a nurse helping to push the 2 edges of the incision together to create less tension as I was putting the stitches in. Once I got the vertical mattress sutures in, then there in between each of the sutures simple interrupted suture. There was minimal bleeding. The patient tolerated the procedure. It was cleaned and dried and a pressure dressing placed. The patient to follow up in a week and then probably another week after that for suture removal. All questions answered to her satisfaction. Job ID: [id number] DocumentID: [id number] Dictated Date: 06/03/2021 20:36:27 Work From Home Date: 06/04/2021 02:21:37 Dictated By: RAMÓN SMITH DO
== END 2021-06-03 20:26 | disposition home or self-care (01) ==
LOC: EDUNIT# 17:31 → ER 17:32
DX: S81.812A Laceration without foreign body, left lower leg, initial encounter (principal); E11.9 Type 2 diabetes mellitus without complications; I70.90 Unspecified atherosclerosis; I10 Essential (primary) hypertension; I25.10 Atherosclerotic heart disease of native coronary artery without angina pectoris; E03.9 Hypothyroidism, unspecified; Z23 Encounter for immunization; Z95.5 Presence of coronary angioplasty implant and graft; Z88.2 Allergy status to sulfonamides; Z88.8 Allergy status to other drugs, medicaments and biological substances; Z79.02 Long term (current) use of antithrombotics/antiplatelets; Z79.82 Long term (current) use of aspirin; Z79.890 Hormone replacement therapy; Z79.899 Other long term (current) drug therapy; W10.8XXA Fall (on) (from) other stairs and steps, initial encounter; Y92.008 Other place in unspecified non-institutional (private) residence as the place of occurrence of the external cause
CPT/HCPCS: 13152; 36415; 73590; 80048; 85025; 85610; 85730; 90715

== ENCOUNTER 2021-06-27 08:09 | Emergency (ER) | payer MEDICARE ==
[~2021-06-27] VITALS: Ht 167.7 cm; Wt 80.9 kg
[~2021-06-27 08:09] MED LIST changes: +CEPH500T PO; +TRAM-42 PO
--- NOTE | 2021-06-27 09:16 | ED Integumentary General ---
General Chief Complaint: Skin/Wound Problems Stated Complaint: L LEG INFECTION Nursing Triage Note: AMB TO ROOM PATIENT REPORTS THAT SHE FELL HAD CAME TO ER ON JUN [address] TROTTER CAME TO ED AND PUT 16 SUTURE IN WAS SEEN ON TUE AND HAD SUTURES REMOVED, AND STERI STRIPS PLACED. LAST 2 DAYS REPORTS WOUND HAS SMELT. AREA IS CRUSTY AROUND STERI STRIPS. Source: patient Exam Limitations: no limitations History of Present Illness Date Seen by Provider: Jun 27, 2021 Time Seen by Provider: 08:50 Initial Comments Patient is a 76-year-old female who presents to the emergency department today with a chief complaint of foul-smelling left anterior leg wound. Patient states that she had a fall, onto a wooden deck June 03 had a large extensive 10 cm laceration over the left anterior reynolds repaired by Dr. Trotter down here in the emergency room. She states within the last week she just had sutures removed and Steri-Strips placed over the wound. Patient tells me she has not been washing the wound she has been covering it with a plastic bag when she showers. Noticed in the last 2 days a foul smell and some increased drainage. Denies any fevers, chills, shortness of breath, nausea vomiting or diarrhea. She has formally been treated for type 2 diabetes but has recently come off her metformin in the last 6 months awaiting follow-up with her primary to see what her A1c is. She does have follow-up scheduled with Dr. Trotter. She is concerned about a little bit of erythema to the wound. She has completed 2 rounds of antibiotics with the wound. All other review of systems reviewed and negative except as stated Timing/Duration: getting worse, other (last 2 days) Associated Symptoms: denies symptoms Allergies and Home Medications Allergies Coded Allergies: Sulfa (Sulfonamide Antibiotics) (Verified Allergy, Unknown, 01/29/20) lisinopril (Verified Allergy, Unknown, 01/29/20) Patient Home Medication List Home Medication List Reviewed: Yes Amitriptyline HCl (Amitriptyline HCl) 10 Mg Tablet, 10 MG PO HS, (Reported) Entered as Reported by: SUSANA DAVISON on 01/29/20 0723 Aspirin (Aspirin EC) 81 Mg Tablet.dr 81 MG PO DAILY, (Reported) Entered as Reported by: SUSANA DAVISON on 8/25/20 0723 Bupropion HCl (Bupropion Xl) 150 Mg Tab.er.24h, 150 MG PO BID, (Reported) Entered as Reported by: SUSANA DAVISON on 01/29/20722 Calcium Carbonate/Vitamin D3 (Calcium 600 + D Caplet) 1 Each Tablet, 1 EACH PO DAILY, (Reported) Entered as Reported by: JUAN SMALLS on 06/03/11922 Carvedilol (Carvedilol) 3.125 Mg Tablet, 3.125 MG PO BID Prescribed by: TITI MADDEN on 01/31/19826 Cephalexin (Cephalexin) 500 Mg Tablet, 500 MG PO QID Prescribed by: BARBIE TOLENTINO on 06/03/211950 Clopidogrel Bisulfate (Plavix) 75 Mg Tablet, 75 MG PO DAILY, (Reported) Entered as Reported by: SUSANA DAVISON on 01/29/20722 Famotidine (Acid Finished Yarn Examiner (FAMOTIDINE)) 20 Mg Tablet, 20 MG PO BID, (Reported) Entered as Reported by: SUSANA DAVISON on 01/29/20722 Levothyroxine Sodium (Levothyroxine Sodium) 112 Mcg Tablet, 112 MCG PO DAILY, (Reported) Entered as Reported by: SUSANA DAVISON on 01/29/20722 Losartan Potassium (Losartan Potassium) 50 Mg Tablet, 50 MG PO DAILY, (Reported) Entered as Reported by: SUSANA DAVISON on 01/29/20722 Magnesium Oxide (Magnesium Oxide) 400 Mg Tablet, 400 MG PO DAILY, (Reported) Entered as Reported by: JUAN SMALLS on 06/03/11922 Multivitamins (Multiple Vitamin) 1 Tab Tablet, 1 TAB PO DAILY, (Reported) Entered as Reported by: JUAN SMALLS on 06/03/11922 Topiramate (Topiramate) 100 Mg Tablet, 100 MG PO DAILY, (Reported) Entered as Reported by: SUSANA DAVISON on 01/29/20722 Tramadol HCl (Ultram) 50 Mg Tablet, 50 MG PO Q4H Prescribed by: BARBIE TOLENTINO on 06/03/211951 Ubidecarenone (Co Q-10) 200 Mg Capsule, 200 MG PO DAILY, (Reported) Entered as Reported by: JUAN SMALLS on 06/03/11922 [Nattokinase] , 100 MG PO DAILY, (Reported) Entered as Reported by: JUAN SMALLS on 06/03/11922 [Osteo Bi Flex] , 1 TAB PO BID, (Reported) Entered as Reported by: JUAN SMALLS on 06/03/11922 Review of Systems Review of Systems Constitutional: see HPI EENTM: no symptoms reported Respiratory: no symptoms reported Cardiovascular: no symptoms reported Gastrointestinal: no symptoms reported Genitourinary: no symptoms reported Musculoskeletal: no symptoms reported Skin: other (left leg wound) All Other Systems Reviewed Negative Unless Noted: Yes Past Ykwonvc-Kghzcg-Cdwovc Hx Immunizations Up To Date Tetanus Booster (TDap): Less than 5yrs First/Initial COVID19 Vaccinat: 12/24 Second COVID19 Vaccination Nino: 12/24 COVID19 Vaccine Loader 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 Sorting Yard: ISELA Past Medical History Surgery/Hospitalization HX: sx: cardiac stents, gallbladder, tonsils, tubal Surgeries: Yes Cardiac, Gallbladder, Tonsillectomy, Tubal Ligation Respiratory: No Cardiac: Yes Coronary Artery Disease, High Cholesterol, Hypertension Neurological: No 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 Sexually Transmitted Disease: No Genitourinary: No Gastrointestinal: Yes (S/P CHOLECYSTECTOMY) Gall Bladder Disease Musculoskeletal: Yes (ARTHRITIS/INJECTIONS IN HER RIGHT KNEE AND NECK ) Endocrine: Yes Hypothyroidsim, Diabetes, Non-Insulin dep HEENT: Yes (S/P TONSILLECTOMY) Tonsilitis Cancer: No Psychosocial: No Integumentary: No Blood Disorders: No Family Medical History No Pertinent Family Hx Physical Exam Vital Signs Vital Signs - First Documented 06/27/21 08:26 Temp 36.0 Pulse 75 Resp 18 B/P (MAP) 148/109 (122) Pulse Ox 98 Capillary Refill : Less Than 3 Seconds General Appearance: WD/WN, no apparent distress Cardiovascular: regular rate, rhythm Respiratory: no respiratory distress, no accessory muscle use Extremities: normal range of motion, non-tender, no pedal edema, no calf tenderness, normal capillary refill Neurologic/Psychiatric: alert, normal mood/affect, oriented x 3 Skin: normal color, warm/dry, other (traumatic wound left anterior leg -10cm; crusted and foul smelling. mild erythema surrounding the wound. Not tender. not fluctuant. no streaking. leg is not painful.) Progress/Results/Core Measures Results/Orders Vital Signs/I&O 06/27/21 08:26 Temp 36.0 Pulse 75 Resp 18 B/P (MAP) 148/109 (122) Pulse Ox 98 Blood Pressure Mean: 122 Progress Progress Note : Time: 09:26 Progress Note left leg wound soaked with betasept/saline soaked 4x4's for about 15 minutes. We were able to clean the wound extensively. Some crusting noted to stay within the wound margins on the lateral aspect of the wound. As stated, mild surrounding erythema. no fluctuance. Wound dried and mastisol applied with fresh steri strips. Will add mupirocin and doxycycline. Will refer to wound care. Patient is agreeable and comfortable with this plan of care. Departure Impression Primary Impression: Wound infection, posttraumatic Disposition: 01 HOME, SELF-CARE Condition: Stable Departure-Patient Inst. Decision time for Depature: 09:30 Referrals: ERINN GANT DO (PCP/Family) Primary Care Physician Patient Instructions: Wound Infection Add. Discharge Instructions: Wash the wound twice a day with an antibacterial soap and water. Apply the Mupirocin ointment twice a day for at least the next 5 days. Take the Doxycycline twice a day for 10 days. Be sure to follow up with Dr Trotter. I have also given you referral information for [facility] - it is under Dr Mcclain, however he is not the doctor in that clinic anymore. Return to the ER for any worsening redness, fever over 100.4, pain in the leg, swelling, increased drainage of Pus or any other emergent concerning symptoms. Scripts Doxycycline Hyclate (Doxycycline Hyclate) 100 Mg Tablet 100 MG PO BID for 10 Days, #20 TAB Prov: DUNG SOUTH MD 06/27/21 Copy Copies To 1: JULI TROTTER DO Copies To 2: ERINN GANT KATHRYN M MD Jun 27, 2021 09:16
[2021-06-27] MEDS ORDERED: MUPIROCIN 2% OINT 22 GM (BACTROBAN) TUBE ONE (09:27)
[2021-06-27] MEDS ORDERED: DOXY100T2 PO (09:33)
[2021-06-27 10:15] VITALS: BP 148/109
[2021-06-27] MEDS ORDERED: MUPIROCIN 2% OINT 22 GM (BACTROBAN) TUBE TOP SCH (21:00)
== END 2021-06-27 10:15 | disposition home or self-care (01) ==
LOC: EDUNIT# 08:09 → ER 08:11
DX: T79.8XXA Other early complications of trauma, initial encounter (principal); I10 Essential (primary) hypertension; E03.9 Hypothyroidism, unspecified; E11.9 Type 2 diabetes mellitus without complications; Z79.82 Long term (current) use of aspirin; Z79.01 Long term (current) use of anticoagulants; Z79.890 Hormone replacement therapy; Z79.899 Other long term (current) drug therapy
CPT/HCPCS: 87070; 87077; 87186; 87205; 99282

== ENCOUNTER → 2021-07-01 | Outpatient (CLI) | payer MEDICARE ==
[~2021-07-01] MED LIST changes: +DOXY100T2 PO
== END ==
LOC: LAB 10:26
PROVIDERS: ATTEND Family Medicine
DX: E11.622 Type 2 diabetes mellitus with other skin ulcer (principal); S81.812A Laceration without foreign body, left lower leg, initial encounter; L03.116 Cellulitis of left lower limb; B96.29 Other Escherichia coli [E. coli] as the cause of diseases classified elsewhere; I65.29 Occlusion and stenosis of unspecified carotid artery; I89.0 Lymphedema, not elsewhere classified; E66.01 Morbid (severe) obesity due to excess calories
CPT/HCPCS: 36415; 83036; 85652; 86141

== ENCOUNTER → 2021-07-01 | Outpatient (CLI) | payer MEDICARE | LOC: WOUNDCARE 08:47 | PROVIDERS: ATTEND Family Medicine | DX: S81.812A Laceration without foreign body, left lower leg, initial encounter (principal); L03.116 Cellulitis of left lower limb; E11.622 Type 2 diabetes mellitus with other skin ulcer; I65.29 Occlusion and stenosis of unspecified carotid artery; I89.0 Lymphedema, not elsewhere classified; E66.01 Morbid (severe) obesity due to excess calories; B96.29 Other Escherichia coli [E. coli] as the cause of diseases classified elsewhere | CPT/HCPCS: 97597; A6260; G0463 ==

== ENCOUNTER → 2021-07-06 | Outpatient (CLI) | payer MEDICARE ==
[~2021-07-06] MED LIST changes: +GADOTERATE 0.5 MMOL/ML (CLARISCAN) 20 ML VIAL IV ONE
--- NOTE | 2021-07-06 10:15 | Diagnostic Imaging Report ---
EXAM: MRI left tibia and fibula without and with intravenous contrast. DATE: July 06, 2021. INDICATION: 76-year-old female, ulcer in the region of the anterior aspect of the mid tibia and fibula. Pain and swelling. COMPARISON: Radiographs of the left tibia and fibula June 03, 2021. TECHNIQUE: Multiple pre and post contrast MRI sequences at the level of the tibia and fibula were obtained. FINDINGS: There is a T1 and T2 hyperintense mass-like abnormality within the subcutaneous tissues adjacent to the medial and anterior aspect of the tibia which is near the marker denoting the focal area of patient concern. This is approximately 14.5 cm below the level of the tibial plateaus and is at the level of the proximal to mid tibial diaphysis. This is measuring 3 cm in craniocaudal extent and does appear to be contiguous with an anterior skin defect, best demonstrated on axial STIR sequence image 26. There is also a skin defect more anteriorly and laterally located on axial post contrast image 21. There is enhancement and inflammatory stranding adjacent to the focal mass-like abnormality which most likely relates to a fluid collection. There is additional nonspecific anterior subcutaneous edema and enhancement which could be seen with cellulitis in the appropriate clinical scenario. There is no T1 marrow signal loss, bone destruction, or abnormal marrow edema or enhancement. There is no abnormal intramuscular signal. IMPRESSION: 1. Focal T1 and T2 hyperintense mass-like abnormality within the anterior and medial subcutaneous tissues near sites of skin defects and area of concern, most likely relating to a complicated fluid collection such as abscess or hematoma. 2. Additional nonspecific subcutaneous edema and enhancement which could relate to cellulitis in the appropriate clinical scenario. 3. No evidence of osteomyelitis. 4. No evidence of myositis. Dictated by: Dictated on workstation # [id number]
== END ==
LOC: RAD 09:30
PROVIDERS: ATTEND Family Medicine
DX: S81.812A Laceration without foreign body, left lower leg, initial encounter (principal); L03.116 Cellulitis of left lower limb; B96.29 Other Escherichia coli [E. coli] as the cause of diseases classified elsewhere; E11.622 Type 2 diabetes mellitus with other skin ulcer; I65.29 Occlusion and stenosis of unspecified carotid artery; I89.0 Lymphedema, not elsewhere classified; E66.01 Morbid (severe) obesity due to excess calories
CPT/HCPCS: 73720

== ENCOUNTER → 2021-07-08 | Outpatient (CLI) | payer MEDICARE ==
[~2021-07-08] MED LIST changes: -GADOTERATE 0.5 MMOL/ML (CLARISCAN) 20 ML VIAL IV ONE
== END ==
LOC: WOUNDCARE 10:26
PROVIDERS: ATTEND Family Medicine
DX: S81.812A Laceration without foreign body, left lower leg, initial encounter (principal); L03.116 Cellulitis of left lower limb; B96.29 Other Escherichia coli [E. coli] as the cause of diseases classified elsewhere; E11.622 Type 2 diabetes mellitus with other skin ulcer; I65.29 Occlusion and stenosis of unspecified carotid artery; I89.0 Lymphedema, not elsewhere classified; E66.01 Morbid (severe) obesity due to excess calories; L76.32 Postprocedural hematoma of skin and subcutaneous tissue following other procedure; E11.52 Type 2 diabetes mellitus with diabetic peripheral angiopathy with gangrene
CPT/HCPCS: 11042; 11045; G0463

== ENCOUNTER → 2021-07-15 | Outpatient (CLI) | payer MEDICARE | LOC: WOUNDCARE 08:29 | PROVIDERS: ATTEND Family Medicine | DX: S81.812A Laceration without foreign body, left lower leg, initial encounter (principal); L03.116 Cellulitis of left lower limb; B96.29 Other Escherichia coli [E. coli] as the cause of diseases classified elsewhere; E11.622 Type 2 diabetes mellitus with other skin ulcer; E11.52 Type 2 diabetes mellitus with diabetic peripheral angiopathy with gangrene; I65.29 Occlusion and stenosis of unspecified carotid artery; I89.0 Lymphedema, not elsewhere classified; E66.01 Morbid (severe) obesity due to excess calories; L76.32 Postprocedural hematoma of skin and subcutaneous tissue following other procedure; Z68.27 Body mass index [BMI] 27.0-27.9, adult | CPT/HCPCS: 11042; 97607; A9272; G0463 ==

== ENCOUNTER → 2021-07-20 | Outpatient (CLI) | payer MEDICARE | LOC: WOUNDCARE 10:28 | PROVIDERS: ATTEND Family Medicine | DX: S81.802A Unspecified open wound, left lower leg, initial encounter (principal); I10 Essential (primary) hypertension; E11.9 Type 2 diabetes mellitus without complications | CPT/HCPCS: 97607; A9272; G0463 ==

== ENCOUNTER → 2021-07-23 | Outpatient (CLI) | payer MEDICARE | LOC: WOUNDCARE 13:16 | PROVIDERS: ATTEND Family Medicine | DX: S81.812A Laceration without foreign body, left lower leg, initial encounter (principal); E11.622 Type 2 diabetes mellitus with other skin ulcer; I65.29 Occlusion and stenosis of unspecified carotid artery; I89.0 Lymphedema, not elsewhere classified; E66.01 Morbid (severe) obesity due to excess calories; L76.32 Postprocedural hematoma of skin and subcutaneous tissue following other procedure; E11.52 Type 2 diabetes mellitus with diabetic peripheral angiopathy with gangrene | CPT/HCPCS: 11042; 97607; A9272; G0463 ==

== ENCOUNTER → 2021-07-27 | Outpatient (CLI) | payer MEDICARE | LOC: WOUNDCARE 10:29 | PROVIDERS: ATTEND Family Medicine | DX: S81.802A Unspecified open wound, left lower leg, initial encounter (principal); I10 Essential (primary) hypertension; E11.9 Type 2 diabetes mellitus without complications | CPT/HCPCS: 97607; G0463 ==

== ENCOUNTER → 2021-07-30 | Outpatient (CLI) | payer MEDICARE | LOC: WOUNDCARE 09:46 | PROVIDERS: ATTEND Family Medicine | DX: S81.812A Laceration without foreign body, left lower leg, initial encounter (principal); E11.622 Type 2 diabetes mellitus with other skin ulcer; I65.29 Occlusion and stenosis of unspecified carotid artery; I89.0 Lymphedema, not elsewhere classified; E66.01 Morbid (severe) obesity due to excess calories; L76.32 Postprocedural hematoma of skin and subcutaneous tissue following other procedure; E11.52 Type 2 diabetes mellitus with diabetic peripheral angiopathy with gangrene | CPT/HCPCS: 11042; 97607; A9272; G0463 ==

== ENCOUNTER → 2021-08-03 | Outpatient (CLI) | payer MEDICARE | LOC: WOUNDCARE 10:34 | PROVIDERS: ATTEND Family Medicine | DX: L08.9 Local infection of the skin and subcutaneous tissue, unspecified (principal); I10 Essential (primary) hypertension; E11.9 Type 2 diabetes mellitus without complications | CPT/HCPCS: 97607; G0463 ==

== ENCOUNTER → 2021-08-06 | Outpatient (CLI) | payer MEDICARE | LOC: WOUNDCARE 10:30 | PROVIDERS: ATTEND Family Medicine | DX: S81.812A Laceration without foreign body, left lower leg, initial encounter (principal); E11.622 Type 2 diabetes mellitus with other skin ulcer; I65.29 Occlusion and stenosis of unspecified carotid artery; I89.0 Lymphedema, not elsewhere classified; E66.01 Morbid (severe) obesity due to excess calories; L76.32 Postprocedural hematoma of skin and subcutaneous tissue following other procedure; E11.52 Type 2 diabetes mellitus with diabetic peripheral angiopathy with gangrene | CPT/HCPCS: 11042; 97607; A9272; G0463 ==

== ENCOUNTER → 2021-08-10 | Outpatient (CLI) | payer MEDICARE | LOC: WOUNDCARE 10:25 | PROVIDERS: ATTEND Family Medicine | DX: E11.622 Type 2 diabetes mellitus with other skin ulcer (principal); I10 Essential (primary) hypertension; I96 Gangrene, not elsewhere classified | CPT/HCPCS: 97607; G0463 ==

== ENCOUNTER → 2021-08-13 | Outpatient (CLI) | payer MEDICARE | LOC: WOUNDCARE 13:41 | PROVIDERS: ATTEND Family Medicine | DX: S81.812A Laceration without foreign body, left lower leg, initial encounter (principal); E11.622 Type 2 diabetes mellitus with other skin ulcer; I65.29 Occlusion and stenosis of unspecified carotid artery; I89.0 Lymphedema, not elsewhere classified; E66.01 Morbid (severe) obesity due to excess calories; L76.32 Postprocedural hematoma of skin and subcutaneous tissue following other procedure; E11.52 Type 2 diabetes mellitus with diabetic peripheral angiopathy with gangrene | CPT/HCPCS: 11042; 97607; A9272; G0463 ==

== ENCOUNTER → 2021-08-20 | Outpatient (CLI) | payer MEDICARE | LOC: WOUNDCARE 09:14 | PROVIDERS: ATTEND Family Medicine | DX: S81.812A Laceration without foreign body, left lower leg, initial encounter (principal); E11.622 Type 2 diabetes mellitus with other skin ulcer; I65.29 Occlusion and stenosis of unspecified carotid artery; I89.0 Lymphedema, not elsewhere classified; E66.01 Morbid (severe) obesity due to excess calories; L76.32 Postprocedural hematoma of skin and subcutaneous tissue following other procedure; E11.52 Type 2 diabetes mellitus with diabetic peripheral angiopathy with gangrene; Z68.27 Body mass index [BMI] 27.0-27.9, adult | CPT/HCPCS: 11042; 97607; A6021; A9272; G0463 ==

== ENCOUNTER → 2021-08-27 | Outpatient (CLI) | payer MEDICARE | LOC: WOUNDCARE 10:30 | PROVIDERS: ATTEND Family Medicine | DX: S81.812A Laceration without foreign body, left lower leg, initial encounter (principal); E11.622 Type 2 diabetes mellitus with other skin ulcer; I65.29 Occlusion and stenosis of unspecified carotid artery; I89.0 Lymphedema, not elsewhere classified; E66.01 Morbid (severe) obesity due to excess calories; L76.32 Postprocedural hematoma of skin and subcutaneous tissue following other procedure | CPT/HCPCS: 15271; 97607; A9272; G0463 ==

== ENCOUNTER → 2021-09-03 | Outpatient (CLI) | payer MEDICARE | LOC: WOUNDCARE 10:34 | PROVIDERS: ATTEND Family Medicine | DX: S81.812A Laceration without foreign body, left lower leg, initial encounter (principal); E11.622 Type 2 diabetes mellitus with other skin ulcer; I65.29 Occlusion and stenosis of unspecified carotid artery; I89.0 Lymphedema, not elsewhere classified; E66.01 Morbid (severe) obesity due to excess calories; L76.32 Postprocedural hematoma of skin and subcutaneous tissue following other procedure; E11.52 Type 2 diabetes mellitus with diabetic peripheral angiopathy with gangrene | CPT/HCPCS: 15271; 97607; A9272; G0463 ==

== ENCOUNTER → 2021-09-11 | Outpatient (CLI) | payer MEDICARE | LOC: WOUNDCARE 09:23 | PROVIDERS: ATTEND Orthopaedic Surgery Hand Surgery | DX: S81.812A Laceration without foreign body, left lower leg, initial encounter (principal); E11.622 Type 2 diabetes mellitus with other skin ulcer; I65.29 Occlusion and stenosis of unspecified carotid artery; I89.0 Lymphedema, not elsewhere classified; E66.01 Morbid (severe) obesity due to excess calories; L97.822 Non-pressure chronic ulcer of other part of left lower leg with fat layer exposed; E11.52 Type 2 diabetes mellitus with diabetic peripheral angiopathy with gangrene; L76.32 Postprocedural hematoma of skin and subcutaneous tissue following other procedure | CPT/HCPCS: 11042; A6021; A6212; G0463 ==

== ENCOUNTER → 2021-09-17 | Outpatient (CLI) | payer MEDICARE | LOC: WOUNDCARE 10:30 | PROVIDERS: ATTEND Family Medicine | DX: S81.812A Laceration without foreign body, left lower leg, initial encounter (principal); E11.622 Type 2 diabetes mellitus with other skin ulcer; I65.29 Occlusion and stenosis of unspecified carotid artery; E66.01 Morbid (severe) obesity due to excess calories; L76.32 Postprocedural hematoma of skin and subcutaneous tissue following other procedure; L97.822 Non-pressure chronic ulcer of other part of left lower leg with fat layer exposed; E11.52 Type 2 diabetes mellitus with diabetic peripheral angiopathy with gangrene; I89.0 Lymphedema, not elsewhere classified | CPT/HCPCS: 11042; A6212; G0463 ==

== ENCOUNTER → 2021-10-01 | Outpatient (CLI) | payer MEDICARE | LOC: WOUNDCARE 08:12 | PROVIDERS: ATTEND Family Medicine | DX: S81.812A Laceration without foreign body, left lower leg, initial encounter (principal); E11.622 Type 2 diabetes mellitus with other skin ulcer; L97.822 Non-pressure chronic ulcer of other part of left lower leg with fat layer exposed; I65.29 Occlusion and stenosis of unspecified carotid artery; I89.0 Lymphedema, not elsewhere classified; E66.01 Morbid (severe) obesity due to excess calories; L76.32 Postprocedural hematoma of skin and subcutaneous tissue following other procedure; E11.52 Type 2 diabetes mellitus with diabetic peripheral angiopathy with gangrene; Z68.27 Body mass index [BMI] 27.0-27.9, adult | CPT/HCPCS: 11042; A6212; G0463 ==

== ENCOUNTER → 2021-10-08 | Outpatient (CLI) | payer MEDICARE | LOC: WOUNDCARE 10:25 | PROVIDERS: ATTEND Family Medicine | DX: S81.812A Laceration without foreign body, left lower leg, initial encounter (principal); E11.622 Type 2 diabetes mellitus with other skin ulcer; I65.29 Occlusion and stenosis of unspecified carotid artery; I89.0 Lymphedema, not elsewhere classified; E66.01 Morbid (severe) obesity due to excess calories; L76.32 Postprocedural hematoma of skin and subcutaneous tissue following other procedure; L97.822 Non-pressure chronic ulcer of other part of left lower leg with fat layer exposed; E11.52 Type 2 diabetes mellitus with diabetic peripheral angiopathy with gangrene | CPT/HCPCS: 11042; A6212; G0463 ==

== ENCOUNTER → 2021-10-15 | Outpatient (CLI) | payer MEDICARE | LOC: WOUNDCARE 10:12 | PROVIDERS: ATTEND Family Medicine | DX: S81.812A Laceration without foreign body, left lower leg, initial encounter (principal); E11.622 Type 2 diabetes mellitus with other skin ulcer; I65.29 Occlusion and stenosis of unspecified carotid artery; I89.0 Lymphedema, not elsewhere classified; E66.01 Morbid (severe) obesity due to excess calories; L76.32 Postprocedural hematoma of skin and subcutaneous tissue following other procedure; L97.822 Non-pressure chronic ulcer of other part of left lower leg with fat layer exposed; Z68.27 Body mass index [BMI] 27.0-27.9, adult | CPT/HCPCS: 99212 ==

== ENCOUNTER → 2022-02-01 | Outpatient (CLI) | payer MEDICARE | LOC: CARD 10:56 | PROVIDERS: ATTEND Nurse Practitioner Family | DX: I51.7 Cardiomegaly (principal); I25.5 Ischemic cardiomyopathy | CPT/HCPCS: 93306 ==

== ENCOUNTER → 2022-02-02 | Outpatient (CLI) | payer MEDICARE ==
[~2022-02-02] MED LIST changes: +REGADENOSON 0.4 MG/5 ML SYR (LEXISCAN) IV ONE
[2022-02-02] MEDS: CATHETER FLUSH 10 ML SYR IVP PRN ×2 (07:40→09:07)
[2022-02-02 09:05] VITALS: BP 136/81
--- NOTE | 2022-02-02 20:52 | STRESS TEST ---
DATE OF SERVICE: 02/02/2022 RESTING AND POST REGADENOSON TECHNETIUM-99M TETROFOSMIN SPECT CT IMAGING ORDERING PHYSICIAN: Allison Penn APRN PRIMARY PHYSICIAN: Dr. Butler. OTHER PHYSICIAN: Dr. Tolbert. CLINICAL DIAGNOSIS: Coronary artery disease. Baseline images were carried out after injection of 10.64 mCi of technetium-99m Tetrofosmin. This was followed by 0.4 mg regadenoson and 29.1 mCi of technetium-99m Tetrofosmin for stress imaging. The electrocardiogram showed sinus rhythm with evidence of anteroseptal and inferior wall myocardial infarction. This appeared to be old. The electrocardiogram did not change significantly with the regadenoson infusion. Review of images at rest and following stress indicates a fairly large apical perfusion defect that extends into the anterior and inferior wall. Gated images show anteroapical dyskinesis. Left ventricular ejection fraction is calculated to be 51%. Left ventricular end-diastolic volume is 109 mL. CONCLUSIONS: 1. Anteroapical myocardial infarction with dyskinesis and with left ventricular ejection fraction of 51%. 2. No evidence of significant myocardial ischemia. 3. Mild cardiomegaly. Job ID: [id number] DocumentID: [id number] Dictated Date: 02/02/2022 16:08:58 Engineering Test Mechanic Date: 02/02/2022 20:51:24 Dictated By: ERWIN TOLBERT MD, MA, FACP, FACC,
== END ==
LOC: CARD 07:45
PROVIDERS: ATTEND Nurse Practitioner Family
DX: I25.10 Atherosclerotic heart disease of native coronary artery without angina pectoris (principal)
CPT/HCPCS: 78452; 93017; A9502

== ENCOUNTER 2022-03-06 01:30 | Emergency (ER) | payer MEDICARE ==
[~2022-03-06] VITALS: Ht 172.7 cm; Wt 95.5 kg
[~2022-03-06 01:30] MED LIST changes: -REGADENOSON 0.4 MG/5 ML SYR (LEXISCAN) IV ONE
[2022-03-06] MEDS ORDERED: ONDANSETRON 4 MG/2 ML (SDV) Z0FRAN IVP ONE (02:00)
[2022-03-06 02:13] LABS: BASOPHILS # (AUTO) 0.1 10^3/uL (0.0-0.1); BASOPHILS % (AUTO) 1 % (0-10); EOSINOPHILS # (AUTO) 0.4 10^3/uL (0.0-0.3); EOSINOPHILS % (AUTO) 4 % (0-10); HEMATOCRIT 36 % (35-52); LYMPHOCYTES # (AUTO) 2.4 10^3/uL (1.0-4.0); LYMPHOCYTES % (AUTO) 26 % (12-44); MEAN CORPUSCULAR HEMOGLOBIN 30 pg (25-34); MEAN CORPUSCULAR HGB CONC 33 g/dL (32-36); MEAN CORPUSCULAR VOLUME 92 fL (80-99); MEAN PLATELET VOLUME 9.9 fL (9.0-12.2); MONOCYTES # (AUTO) 0.7 10^3/uL (0.0-1.0); MONOCYTES % (AUTO) 7 % (0-12); NEUTROPHILS # (AUTO) 5.8 10^3/uL (1.8-7.8); NEUTROPHILS % (AUTO) 62 % (42-75); PLATELET COUNT 173 10^3/uL (130-400); WHITE BLOOD COUNT 9.3 10^3/uL (4.3-11.0)
[2022-03-06 02:23] LABS: ALBUMIN 3.7 GM/DL (3.2-4.5); POTASSIUM 3.7 MMOL/L (3.6-5.0)
[2022-03-06 02:25] LABS: CALCIUM 8.6 MG/DL (8.5-10.1)
[2022-03-06 02:26] LABS: TOTAL PROTEIN 6.3 GM/DL (6.4-8.2)
[2022-03-06 02:28] LABS: BILIRUBIN,TOTAL 0.4 MG/DL (0.1-1.0)
[2022-03-06 02:30] LABS: CREATININE SERUM 1.15 MG/DL (0.60-1.30)
--- NOTE | 2022-03-06 04:12 | ED Fall/Injury ---
General Chief Complaint: Trauma-Non Activation Stated Complaint: FALL - HIT HEAD Nursing Triage Note: pt was at the bar, intoxicated, fell into the bar hitting her face and her r arm. states r facial bruising and r upper arm pain Source: patient Exam Limitations: no limitations History of Present Illness Date Seen by Provider: Mar 06, 2022 Time Seen by Provider: 01:45 Initial Comments This is 77-year-old woman presents to the emergency room by private vehicle with complaints of right arm pain and facial injuries after having a fall. She went to a [employer] to watch dancers and became intoxicated. She fell striking her head and right arm against the wall and then sliding down to the ground. She has notable contusions on the right face and complains of significant pain in the right proximal arm. She is dangling her arm loose on arrival. She denies any neck pain or injury. She is alert and conversational. She has multiple comorbidities including diabetes, coronary artery disease with ischemic cardiomyopathy and Plavix use, and hypertension. Allergies and Home Medications Allergies Coded Allergies: Sulfa (Sulfonamide Antibiotics) (Verified Allergy, Unknown, 01/29/20) lisinopril (Verified Allergy, Unknown, 01/29/20) Patient Home Medication List Home Medication List Reviewed: Yes Amitriptyline HCl (Amitriptyline HCl) 10 Mg Tablet, 10 MG PO HS, (Reported) Entered as Reported by: SUSANA DAVISON on 01/29/20722 Aspirin (Aspirin EC) 81 Mg Tablet.dr, 81 MG PO DAILY, (Reported) Entered as Reported by: SUSANA DAVISON on 01/29/20722 Bupropion HCl (Bupropion Xl) 150 Mg Tab.er.24h, 150 MG PO BID, (Reported) Entered as Reported by: SUSANA DAVISON on 01/29/20 07 Calcium Carbonate/Vitamin D3 (Calcium 600 + D Caplet) 1 Each Tablet, 1 EACH PO DAILY, (Reported) Entered as Reported by: JUAN SMALLS on 06/03/11 09 Carvedilol (Carvedilol) 3.125 Mg Tablet, 3.125 MG PO BID Prescribed by: TITI MADDEN on 01/31/19 08 Cephalexin (Cephalexin) 500 Mg Tablet, 500 MG PO QID Prescribed by: BARBIE TOLENTINO on 06/03/211950 Clopidogrel Bisulfate (Plavix) 75 Mg Tablet, 75 MG PO DAILY, (Reported) Entered as Reported by: SUSANA DAVISON on 01/29/20722 Doxycycline Hyclate (Doxycycline Hyclate) 100 Mg Tablet, 100 MG PO BID Prescribed by: DUNG SOUTH on 06/27/21932 Famotidine (Acid Copier Operator (FAMOTIDINE)) 20 Mg Tablet, 20 MG PO BID, (Reported) Entered as Reported by: SUSANA DAVISON on 01/29/20722 Levothyroxine Sodium (Levothyroxine Sodium) 112 Mcg Tablet, 112 MCG PO DAILY, (Reported) Entered as Reported by: SUSANA DAVISON on 01/29/20722 Losartan Potassium (Losartan Potassium) 50 Mg Tablet, 50 MG PO DAILY, (Reported) Entered as Reported by: SUSANA DAVISON on 01/29/20722 Magnesium Oxide (Magnesium Oxide) 400 Mg Tablet, 400 MG PO DAILY, (Reported) Entered as Reported by: JUAN SMALLS on 06/03/11922 Multivitamins (Multiple Vitamin) 1 Tab Tablet, 1 TAB PO DAILY, (Reported) Entered as Reported by: JUAN SMALLS on 06/03/11922 Topiramate (Topiramate) 100 Mg Tablet, 100 MG PO DAILY, (Reported) Entered as Reported by: SUSANA DAVISON on 01/29/20722 Tramadol HCl (Ultram) 50 Mg Tablet, 50 MG PO Q4H Prescribed by: BARBIE TOLENTINO on 06/03/211951 Ubidecarenone (Co Q-10) 200 Mg Capsule, 200 MG PO DAILY, (Reported) Entered as Reported by: JUAN SMALLS on 06/03/11922 [Nattokinase] , 100 MG PO DAILY, (Reported) Entered as Reported by: JUAN SMALLS on 06/03/11922 [Osteo Bi Flex] , 1 TAB PO BID, (Reported) Entered as Reported by: JUAN SMALLS on 06/03/11922 Review of Systems Review of Systems Constitutional: see HPI Eyes: No Symptoms Reported Ears, Nose, Mouth, Throat: see HPI Respiratory: no symptoms reported Cardiovascular: no symptoms reported Gastrointestinal: no symptoms reported Genitourinary: no symptoms reported : No Musculoskeletal: see HPI Skin: see HPI Psychiatric/Neurological: See HPI Past Lokmnss-Ybxtya-Pjbbvq Hx Patient Social History Tobacco Use?: Yes Use of E-Cig and/or Vaping dev: Yes Substance use?: No Alcohol Use?: Yes Alcohol type: Hard Liquor Alcohol Frequency: Rarely Pt feels they are or have been: No Immunizations Up To Date Tetanus Booster (TDap): Less than 5yrs First/Initial COVID19 Vaccinat: 12/24 Second COVID19 Vaccination Nino: 12/24 Third COVID19 Vaccination Date: 04/26 Past Medical History Surgery/Hospitalization HX: sx: cardiac stents, gallbladder, tonsils, tubal Surgeries: Yes Cardiac, Coronary Stent, Gallbladder, Tonsillectomy, Tubal Ligation Respiratory: No Cardiac: Yes Coronary Artery Disease, High Cholesterol, Hypertension Neurological: No 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 Sexually Transmitted Disease: No Genitourinary: No Gastrointestinal: Yes (S/P CHOLECYSTECTOMY) Gall Bladder Disease Musculoskeletal: Yes (ARTHRITIS/INJECTIONS IN HER RIGHT KNEE AND NECK ) Endocrine: Yes Hypothyroidsim, Diabetes, Non-Insulin dep HEENT: Yes (S/P TONSILLECTOMY) Tonsilitis Cancer: No Psychosocial: No Integumentary: No Blood Disorders: No Family Medical History No Pertinent Family Hx Physical Exam Vital Signs Vital Signs - First Documented 03/06/22 01:46 Temp 35.4 Pulse 49 Resp 16 B/P (MAP) 111/58 (75) Pulse Ox 97 O2 Delivery Nasal Cannula O2 Flow Rate 2.00 Capillary Refill : Height, Weight, BMI Height: 5'6.00" Weight: 179lbs. 1.6oz. 81.664967ce; 32.00 BMI Method:Stated General Appearance: WD/WN, mild distress, obese HEENT: PERRL/EOMI, normal ENT inspection, pharynx normal, other (Significant bruising on the right forehead, scalp, and periorbital region) Neck: normal inspection Cardiovascular: regular rate, rhythm, no edema, no murmur Respiratory: lungs clear, normal breath sounds, no respiratory distress Gastrointestinal: normal bowel sounds, non tender, soft Extremities: no pedal edema, other (No pain or tenderness in the lower extremities. No pain with range of motion. Left upper extremity unremarkable. Right upper extremity with tenderness in the proximal arm. Shoulder is unremarkable. Distal exam from elbow through fingertips is unremarkable. Radial pulse, distal sensation, capillary refill, and auto damage adjuster are all intact.) Neurologic/Psychiatric: body team member II-XII nml as tested, no motor/sensory deficits, alert, normal mood/affect, other (Intoxicated but conversational) Skin: normal color, warm/dry, ecchymosis Progress/Results/Core Measures Results/Orders Lab Results Laboratory Tests Test 03/06/22 02:04 Range/Units White Blood Count 9.3 4.3-11.0 10^3/uL Red Blood Count 3.95 3.80-5.11 10^6/uL Hemoglobin 12.0 11.5-16.0 g/dL Hematocrit 36 35-52 % Mean Corpuscular Volume 92 80-99 fL Mean Corpuscular Hemoglobin 30 25-34 pg Mean Corpuscular Hemoglobin Concent 33 32-36 g/dL Red Cell Distribution Width 13.3 10.0-14.5 % Platelet Count 173 130-400 10^3/uL Mean Platelet Volume 9.9 9.0-12.2 fL Immature Granulocyte % (Auto) 0 % Neutrophils (%) (Auto) 62 42-75 % Lymphocytes (%) (Auto) 26 12-44 % Monocytes (%) (Auto) 7 0-12 % Eosinophils (%) (Auto) 4 0-10 % Basophils (%) (Auto) 1 0-10 % Neutrophils # (Auto) 5.8 1.8-7.8 10^3/uL Lymphocytes # (Auto) 2.4 1.0-4.0 10^3/uL Monocytes # (Auto) 0.7 0.0-1.0 10^3/uL Eosinophils # (Auto) 0.4 H 0.0-0.3 10^3/uL Basophils # (Auto) 0.1 0.0-0.1 10^3/uL Immature Granulocyte # (Auto) 0.0 0.0-0.1 10^3/uL Sodium Level 139 135-145 MMOL/L Potassium Level 3.7 3.6-5.0 MMOL/L Chloride Level 108 H 98-107 MMOL/L Carbon Dioxide Level 20 L 21-32 MMOL/L Anion Gap 11 5-14 MMOL/L Blood Urea Nitrogen 19 H 7-18 MG/DL Creatinine 1.15 0.60-1.30 MG/DL Estimat Glomerular Filtration Rate 49 BUN/Creatinine Ratio 17 Glucose Level 149 H 70-105 MG/DL Calcium Level 8.6 8.5-10.1 MG/DL Corrected Calcium 8.8 8.5-10.1 MG/DL Total Bilirubin 0.4 0.1-1.0 MG/DL Aspartate Amino Transf (AST/SGOT) 43 H 5-34 U/L Alanine Aminotransferase (ALT/SGPT) 30 0-55 U/L Alkaline Phosphatase 61 40-136 U/L Total Protein 6.3 L 6.4-8.2 GM/DL Albumin 3.7 3.2-4.5 GM/DL Serum Alcohol 199 H <10 MG/DL My Orders Orders - TALON SHAHID MD Humerus, Right, 2 Views (03/06/22 01:53) Ct Head/Face/Cervical Wo (03/06/22 01:53) Alcohol (03/06/22 01:54) Cbc With Automated Diff (03/06/22 01:54) Comprehensive Metabolic Panel (03/06/22 01:54) Ed Iv/Invasive Line Start (03/06/22 01:54) Ondansetron Injection (Zofran Injectio (03/06/22 02:00) Chest 1 View, Ap/Pa Only (03/06/22 03:51) Morphine Injection (Morphine Injection (03/06/22 05:02) Pantoprazole Injection (Protonix Injecti (03/06/22 05:15) Medications Given in ED Current Medications Medications Dose Ordered Sig/Michele Route Start Time Stop Time Status Last Admin Dose Admin Ondansetron HCl 4 mg ONCE ONCE IVP 03/06/22 02:00 03/06/22 02:01 DC 03/06/22 02:09 4 MG Pantoprazole 40 mg ONCE ONCE IV 03/06/22 05:15 03/06/22 05:16 DC 03/06/22 05:12 40 MG Vital Signs/I&O 03/06/22 03/06/22 01:46 05:22 Temp 35.4 35.4 Pulse 49 52 Resp 16 16 B/P (MAP) 111/58 (75) 152/88 Pulse Ox 97 97 O2 Delivery Nasal Cannula Nasal Cannula O2 Flow Rate 2.00 3.00 Blood Pressure Mean: 75 Progress Progress Note #1: Time: 04:07 Progress Note No serious injuries were identified on CT of the head, face, and cervical spine. However, there was a comminuted displaced fracture of the proximal right humerus. I reviewed this finding with Dr. Guzman, orthopedist on-call. This is a rather displaced and comminuted fracture that will likely need surgical repair. He believes this is beyond his scope of practice. He recommends transferring to higher level of orthopedic care or stabilizing as an ER patient and sending to higher level of care at a later date. Given that the patient is not able to be discharged at this time due to her intoxication anyway, transfer to higher level of care was sought. I discussed the case with Dr. Cole, orthopedist on-call for [place], he accepts the patient for transfer for orthopedic consultation. I spoke with Dr. Lewis in the ER who accepts transfer. Progress Note #2: Progress Note Patient requested something for pain and for acid reflux prior to transfer. She was given Protonix and morphine. Diagnostic Imaging Plain Films/CT/US/NM/MRI: facial bones, c-spine, head Comments CT head, face, and cervical spine viewed by me. [facility] report reviewed. No intracranial abnormalities appreciated. No cervical spine fracture. Soft tissue injury apparent. Diagonstic Imaging: Xray Plain Films/CT/US/NM/MRI: chest Comments Chest x-ray viewed by me. Report not yet available. No acute injuries identified. Diagonstic Imaging: Xray Plain Films/CT/US/NM/MRI: other (Right humerus) Comments Right humerus x-rays viewed by me. Report not yet available. Comminuted significantly displaced right proximal humerus fracture. Departure Impression Primary Impression: Closed right humeral fracture Qualified Codes: S42.291A - Other displaced fracture of upper end of right humerus, initial encounter for closed fracture Additional Impressions: Fall on same level as cause of accidental injury Facial contusion Qualified Codes: S00.83XA - Contusion of other part of head, initial encounter Alcohol intoxication Qualified Codes: F10.929 - Alcohol use, unspecified with intoxication, unspecified Disposition: 02 XFER SHT-TRM HOSP Condition: Stable Transfer Transfer Reason: Exceeds level of care Time Spoke to Accepting Phy: 04:05 Transfer Progress Notes Transfer accepted by Dr. Cole and Dr. Lewis at [facility]. Transfer Time: 05:23 Transfer Facility: [place], [place] Method of Transfer: EMS Departure-Patient Inst. Referrals: ERINN GANT DO (PCP/Family) Primary Care Physician Copy Copies To 1: ERINN GANT JOSHUA T MD Mar 06, 2022 04:12
[2022-03-06] MEDS ORDERED: morphine INJ 10 MG/ML 1ML (SYR OR VIAL) IVP STA (05:02)
[2022-03-06] MEDS ORDERED: PANTOPRAZOLE 40 MG (PROTONIX) VIAL IV ONE (05:15)
[2022-03-06 05:22] VITALS: BP 152/88
--- NOTE | 2022-03-06 06:17 | Diagnostic Imaging Report ---
PROCEDURE: CT head, face, and cervical spine without contrast. TECHNIQUE: Multiple contiguous axial images were obtained through the head, neck, and facial bones without the use of intravenous contrast. Sagittal and coronal reformations through the cervical spine and facial bones were also performed. Auto Exposure Controls were utilized during the CT exam to meet ALARA standards for radiation dose reduction. Indication: Trauma with head and neck injury and pain. Comparison: None. Discussion: Head/face: No acute intracranial hemorrhage, mass, midline shift, hydrocephalus. There is significant edema along the right orbit extending into the anterior right scalp. No soft tissue gas or foreign body. There is no periorbital or facial fracture identified. Temporomandibular joints are normally located. The sinuses are well-aerated. The mastoid air cells are well-aerated. No calvarial fracture. 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 There is mild reversal of the normal cervical lordosis. No acute fracture or subluxation. Paraspinal soft tissues are unremarkable. Impression: 1. Significant soft tissue edema along the right orbit extending into the anterior right scalp. No underlying fracture identified. 2. No acute intracranial abnormality identified. 3. 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 No acute fracture. 4. Agree with preliminary report. Dictated by: Dictated on workstation # [id number]
--- NOTE | 2022-03-06 06:52 | Diagnostic Imaging Report ---
Indication: Dyspnea after fall, hypoxia. Comparison: 01/27/2019. Discussion: Single portable upright view of the chest was obtained. Heart is upper limits of normal in size. No poonam failure. No consolidation, pleural fluid, or pneumothorax. No osseous abnormality on this single view. Impression: 1. Negative chest. Dictated by: Dictated on workstation # [id number]
--- NOTE | 2022-03-06 06:52 | Diagnostic Imaging Report ---
Indication: Right arm injury with pain and swelling. Comparison: None. Discussion: Two views of the right humerus were obtained. There is a comminuted fracture involving the proximal half of the right humerus. There is displacement of the distal shaft approximately one full shaft width. Fracture lines extend into the humeral neck region. Inferior to the glenohumeral joint there is a possible fracture fragment which is incompletely viewed. This could also represent soft tissue calcification or marginal osteophyte formation. Dedicated images of the right shoulder may be beneficial to further evaluate the joint space and articular surfaces. Soft tissue swelling noted. Impression: 1. Comminuted fracture of the proximal half of the right humerus, as described. Dictated by: Dictated on workstation # [id number]
== END 2022-03-06 05:23 | disposition short-term general hospital (02) ==
LOC: EDUNIT# 01:30 → ER 01:32
DX: S42.201A Unspecified fracture of upper end of right humerus, initial encounter for closed fracture (principal); S00.03XA Contusion of scalp, initial encounter; S00.83XA Contusion of other part of head, initial encounter; F10.129 Alcohol abuse with intoxication, unspecified; E66.9 Obesity, unspecified; Z72.0 Tobacco use; Z68.32 Body mass index [BMI] 32.0-32.9, adult; W18.30XA Fall on same level, unspecified, initial encounter; Y92.89 Other specified places as the place of occurrence of the external cause
CPT/HCPCS: 70450; 70486; 71045; 72125; 73060; 80053; 85025; 99285; G0480; 36415; 80320

== ENCOUNTER → 2022-11-08 | Outpatient (CLI) | payer MEDICARE ==
[~2022-11-08] MED LIST changes: +CLOP-31 PO; -CLOP75TA69 PO
--- NOTE | 2022-11-08 11:53 | Diagnostic Imaging Report ---
Indication: Routine screening. Comparison is made with prior mammogram from 03/02/2021 and 02/29/2020. 2-D and 3-D bilateral screening mammography was performed with CAD. CAD is utilized. The current study was also evaluated with a Computer Aided Detection (CAD) system. Both breasts are heterogeneously dense, limiting the sensitivity of mammography. Benign nodules in the outer right breast are stable. No spiculated mass or malignant-appearing microcalcifications are seen. Axillae are unremarkable. IMPRESSION: BI-RADS Category 2 No mammographic features suspicious for malignancy are identified. ACR BI-RADS Category 2: Benign findings. Result letter will be mailed to the patient. Note: At least 10% of breast cancer is not imaged by mammography. Dictated by: Dictated on workstation # [id number]
== END ==
LOC: RAD 11:00
PROVIDERS: ATTEND Obstetrics & Gynecology
DX: Z12.31 Encounter for screening mammogram for malignant neoplasm of breast (principal)
CPT/HCPCS: 77063; 77067